=== PATIENT | male | born 1950 | race Caucasian/White ===

== ENCOUNTER 2021-01-02 17:32 | Emergency (ER) | payer OTHER ==
--- OUTSIDE RECORDS SUMMARY | 2021-01-02 17:56 | XMS REPORT | Continuity of Care Document ---
:1950 Author Organization [facility] t Address [address] [place] [address] Care Team Providers Name Role Phone UNKNOWN Primary Care Physician Unavailable Pascual BRIONES, A Attending Clinician Doctor Unassigned, Name Attending Clinician Unavailable MATHEW Attending Clinician Unavailable MATHEW Admitting Clinician Unavailable Problems This patient has no known problems. Allergies, Adverse Reactions, Alerts Allergy Allergy Status Severity Reaction(s) Onset Inactive Treating Comm ents Source Name Type Date Date Clinician No Known DA Active U [facility] Drug 11-16 Allergie 00:00: s 00 Social History Social Habit Start Date Stop Date Quantity Comments Source Sex Assigned At [address] [facility] ethodist 00:00:00 00:00:00 Medications Ordered Filled Start Stop Current Ordering Indication Dosage Frequency Signature Comments Components Source Medication Medication Date Date Medication? Clinician (SIG) Name Name furosemide Yes 20mg Q.5D Take 20 mg [place] (LASIX) 20 7-15 by mouth 2 Met hodi MG tablet 18:34: (two) st 46 times a day. hydrochloro Yes 25mg QD Take 25 mg Reid thiazide 7-15 by mouth Methodi (HYDRODIURI 18:34: daily. st L) 25 MG 45 tablet metFORMIN 2016-0 Yes 500mg Q.5D Take 500 Alyce ston (GLUCOPHAGE 7-15 mg by Methodi ) 500 MG 18:34: mouth 2 st tablet 45 (two) times a day with meals. Vital Signs Vital Name Observation Time Observation Value Comments Source 02 Sat by Pulse Oximetry 2020-11-22 10:05:10 94 /min Body Mass Index 2020-11-22 10:05:10 76.8 Height 2020-11-22 10:05:10 180.34\S\71 Pulse Rate 2020-11-22 10:05:10 58 /min Pulse Strength 2020-11-22 10:05:10 Normal /min Respiratory Rate 2020-11-22 10:05:10 18 /min Weight 2020-11-22 10:05:10 004167\S\8818.49 02 Sat by Pulse Oximetry 2020-11-17 00:08:15 94 /min Body Mass Index 2020-11-17 00:08:15 76.8 Height 2020-11-17 00:08:15 180.34\S\71 Pulse Rate 2020-11-17 00:08:15 58 /min Pulse Strength 2020-11-17 00:08:15 Normal /min Respiratory Rate 2020-11-17 00:08:15 18 /min Weight 2020-11-17 00:08:15 575684\S\8818.49 02 Sat by Pulse Oximetry 2020-11-17 00:08:14 94 /min Body Mass Index 2020-11-17 00:08:14 76.8 Height 2020-11-17 00:08:14 180.34\S\71 Pulse Rate 2020-11-17 00:08:14 58 /min Pulse Strength 2020-11-17 00:08:14 Normal /min Respiratory Rate 2020-11-17 00:08:14 18 /min Weight 2020-11-17 00:08:14 546816\S\8818.49 02 Sat by Pulse Oximetry 2020-11-16 12:22:40 93 /min Body Mass Index 2020-11-16 12:22:40 76.8 Height 2020-11-16 12:22:40 180.34\S\71 Pulse Rate 2020-11-16 12:22:40 58 /min Pulse Strength 2020-11-16 12:22:40 Normal /min Respiratory Rate 2020-11-16 12:22:40 19 /min Weight 2020-11-16 12:22:40 893888\S\8818.49 Body Mass Index 2020-11-16 07:00:48 76.8 Height 2020-11-16 07:00:48 180.34\S\71 Weight 2020-11-16 07:00:48 715356\S\8818.49 WEIGHT 2020-11-16 07:00:00 250 kg HEIGHT 2020-11-16 07:00:00 180.34 cm Procedures This patient has no known procedures. Plan of Care Planned Activity Planned Date Details Comments Source Future Scheduled 2021-03-17 INFLUENZA VACCINE [place] [facility] 00:00:00 [code = INFLUENZA VACCINE] Future Scheduled 2013 65+ PNEUMOCOCCAL [facility] 00:00:00 VACCINE (1 of 1 - PPSV23) [code = 65+ PNEUMOCOCCAL VACCINE (1 of 1 - PPSV23)] Future Scheduled 1998 COLONOSCOPY SCREENING [facility] 00:00:00 [code = COLONOSCOPY SCREENING] Future Scheduled 1998 SHINGLES VACCINES (#1) H shweta [facility] 00:00:00 [code = SHINGLES VACCINES (#1)] Future Scheduled 1960 COVID-19 VACCINE (1) Alycebriseida hickey [facility] 00:00:00 [code = COVID-19 VACCINE (1)] Encounters Start End Encounter Admission Attending Care Care Encounter Source Date/Time Date/Time Type Type Clinicians Facility Department ID 2020-12-19 2020-12-19 [facility] [id number] 00:00:00 00:00:00 Nitin A PRIMARY [id number] CARE [id number] KRISTIN [id number] 2020-12-18 2020-12-18 Orders Doctor SARA [id number] 00:00:00 00:00:00 Only Unassigned, CHAY [id number] [place] [facility] [id number] 2020-12-16 2020-12-[address] [facility] [id number] 00:00:00 00:00:00 Nitin Ruiz PRIMARY [id number] CARE [id number] [facility] [id number] 2020-11-02 2020-11-[address] [facility] [id number] 13:17:26 15:03:06 Visit Nitin Ruiz PRIMARY [id number] CARE [id number] PAVILLION [id number] Results Test Description Test Time Test Comments Results Result Comments Source Pro-Bnp 2017-04-09 22:10:00 Test Item Value Reference Range Interpretation Comme nts NT ProBnp (test code = PBNP) 204 pg/mL 0-124 H Lipid [id number] 22:10:00 Test Item Value Reference Range Interpretation Comments Cholesterol (test 150 mg/dL 0-200 N code = CHOL) Triglycerides (test 150 mg/dL 9-200 N code = TRIG) HDL (test code = 43 mg/dL 40-60 N HDL) Chol/HDL (test code 3.5 Ratio 0.0-5.0 N = CHOLPHDL) LDL, Calculated 77 mg/dL 0-130 N (NOTE)RISK O F HEART (test code = LDLC) DISEASEPu blished by [place] Heart AssociationAnal yte Optim al Boderline Increased RiskC HOL <200 200-239 >240TRI G <150 150-199 >200HDL Male: >60 <40HDL Female: >60 <50 LDL < 100 130-15 9 >160 LDL NEAR OPTIMAL IS 100- 129 VLDL (test code = 30 mg/dL 5-40 N VLDL) LDL/HDL (test code = 2 LDLPHDL)
[2021-01-02 20:51] LABS: Absolute Lymphocytes (CBC) 1.6 K/uL (0.7-4.9); Basophils % 0.6 % (0-1.3); Hematocrit 43.2 % (39.6-49.0); Lymphocytes % 18.4 % (15.3-44.8); MPV 9.3 fL (7.6-11.3); RBC Red Blood Cell Count 4.88 M/uL (4.33-5.43)
[2021-01-02] MEDS ORDERED: NA CHLORIDE 0.9% 1,000 ML ONE (20:52)
[2021-01-02] MEDS ORDERED: BISACODYL 10 MG RECTAL SUPP ONE (20:52)
[2021-01-02] MEDS ORDERED: LACTULOSE 20 GM/30 ML UCUP ONE (20:52)
[2021-01-02] MEDS ORDERED: NA CHLORIDE 0.9% 500 ML ONE (20:52)
[2021-01-02 21:00] LABS: Albumin 3.8 g/dL (3.4-5.0); Bilirubin Direct 0.3 mg/dL (0-0.2); Potassium 4.5 mmol/L (3.5-5.1); Protein, Total 7.4 g/dL (6.4-8.2)
--- NOTE | 2021-01-02 23:26 | EDPHYS ---
Physician Documentation [facility] Name: Tuan Martins Age: 70 yrs Sex: Male : 1950 Arrival Date: 01/02/2021 Time: 17:33 Bed 14 Private MD: ED Physician Lizandro Nolan HPI: 01/02 20:27 This 70 yrs old Male presents to ER via Ambulatory with complaints of elaine Abdominal Cramping, Constipation. Historical: - Allergies: 18:06 No Known Allergies; ll1 - PMHx: 18:06 Diabetes - NIDDM; Hypertension; ll1 - PSHx: 18:06 valve replacement; eye surgery; ll1 - Immunization history:: Flu vaccine is up to date. - Social history:: Smoking status: Patient denies any tobacco usage or history of. ROS: 20:27 Constitutional: Negative for fever, chills, and weight loss, Eyes: Negative for injury, elaine pain, redness, and discharge, ENT: Negative for injury, pain, and discharge, Neck: Negative for injury, pain, and swelling, Cardiovascular: Negative for chest pain, palpitations, and edema, Respiratory: Negative for shortness of breath, cough, wheezing, and pleuritic chest pain, Back: Negative for injury and pain, : Negative for injury, bleeding, discharge, and swelling, MS/Extremity: Negative for injury and deformity, Skin: Negative for injury, rash, and discoloration, Neuro: Negative for headache, weakness, numbness, tingling, and seizure, Psych: Negative for depression, anxiety, suicide ideation, homicidal ideation, and hallucinations, Allergy/Immunology: Negative for hives, rash, and allergies, Endocrine: Negative for neck swelling, polydipsia, polyuria, polyphagia, and marked weight changes. 20:27 Abdomen/GI: Positive for abdominal pain, constipation, abdominal cramps. Exam: 20:28 Constitutional: This is a well developed, well nourished patient who is awake, alert, elaine and in no acute distress. Head/Face: Normocephalic, atraumatic. Eyes: Pupils equal round and reactive to light, extra-ocular motions intact. Lids and lashes normal. Conjunctiva and sclera are non-icteric and not injected. Cornea within normal limits. Periorbital areas with no swelling, redness, or edema. ENT: Nares patent. No nasal discharge, no septal abnormalities noted. Tympanic membranes are normal and external auditory canals are clear. Oropharynx with no redness, swelling, or masses, exudates, or evidence of obstruction, uvula midline. Mucous membranes moist. Neck: Trachea midline, no thyromegaly or masses palpated, and no cervical lymphadenopathy. Supple, full range of motion without nuchal rigidity, or vertebral point tenderness. No Meningismus. Chest/axilla: Normal chest wall appearance and motion. Nontender with no deformity. No lesions are appreciated. Cardiovascular: Regular rate and rhythm with a normal S1 and S2. No gallops, murmurs, or rubs. Normal PMI, no JVD. No pulse deficits. Respiratory: Lungs have equal breath sounds bilaterally, clear to auscultation and percussion. No rales, rhonchi or wheezes noted. No increased work of breathing, no retractions or nasal flaring. Back: No spinal tenderness. No costovertebral tenderness. Full range of motion. Male : Normal genitalia with no discharge or lesions. Skin: Warm, dry with normal turgor. Normal color with no rashes, no lesions, and no evidence of cellulitis. MS/ Extremity: Pulses equal, no cyanosis. Neurovascular intact. Full, normal range of motion. Neuro: Awake and alert, GCS 15, oriented to person, place, time, and situation. Cranial nerves II-XII grossly intact. Motor strength 5/5 in all extremities. Sensory grossly intact. Cerebellar exam normal. Normal gait. Psych: Awake, alert, with orientation to person, place and time. Behavior, mood, and affect are within normal limits. 20:28 Abdomen/GI: Inspection: abdomen appears normal. 20:39 Abdomen/GI: Inspection: distension, that is moderate, Bowel sounds: hyperactive, elaine Palpation: mild abdominal tenderness, in all quadrants, Liver: no appreciated palpable abnormalities, Hernia: not appreciated. Vital Signs: 18:04 BP 160 / 72; Pulse 69; Resp 18; Temp 97.9; Pulse Ox 98% ; Weight 111.13 kg; Height 5 ll1 ft. 11 in. (180.34 cm); Pain 2/10; 20:54 BP 170 / 77; Pulse 84; Resp 16; Pulse Ox 99% on R/A; zb 21:42 BP 138 / 59; Pulse 59; Resp 18; Pulse Ox 98% ; zb 22:22 BP 139 / 59; Pulse 58; Resp 18; Pulse Ox 100% on R/A; zb 23:09 BP 130 / 77; Pulse 58; Resp 16; Pulse Ox 100% on R/A; zb 18:04 Body Mass Index 34.17 (111.13 kg, 180.34 cm) ll1 MDM: 20:04 Patient medically screened. elaine 20:40 Differential diagnosis: bowel obstruction, Cholelithiasis, gastritis, pancreatitis. [facility] Data reviewed: vital signs, nurses notes, lab test result(s), radiologic studies, CT scan. Data interpreted: engine monitor: rate is 69 beats/min, rhythm is regular. Test interpretation: by ED physician or midlevel provider:. Counseling: I had a detailed discussion with the patient and/or guardian regarding: the historical points, exam findings, and any diagnostic results supporting the discharge/admit diagnosis, lab results, radiology results. 01/02 20:23 Order name: Basic Metabolic Panel [facility] 01/02 20:23 Order name: CBC with Diff [facility] 01/02 20:23 Order name: Hepatic Function [facility] 01/02 20:23 Order name: Lipase [facility] 01/02 20:56 Order name: CBC with Automated Diff; Complete Time: 21:44 EDMS 01/02 21:00 Order name: Basic Metabolic Panel; Complete Time: 21:44 EDMS 01/02 20:23 Order name: IV Saline Lock; Complete Time: 20:50 [facility] 01/02 20:23 Order name: CT Abd/Pelvis - PO and IV Contrast [facility] 01/02 21:00 Order name: Liver (Hepatic) Function; Complete Time: 21:44 EDMS 01/02 21:00 Order name: Lipase; Complete Time: 21:44 EDMS 01/02 20:23 Order name: Labs collected and sent; Complete Time: 20:50 [facility] Administered Medications: 20:49 Drug: NS 0.9% 1000 ml Route: IV; Rate: 125 ml/hr; Site: right antecubital; zb 23:56 Follow up: Response: No adverse reaction; IV Status: Completed infusion; IV Intake: zb 250ml 20:49 Drug: Dulcolax (bisacodyl) Suppository 10 mg Route: DE; zb 21:43 Follow up: Response: No adverse reaction; Marked relief of symptoms zb 20:49 Drug: Lactulose 30 grams Volume: 45 ml; Route: PO; zb 21:43 Follow up: Response: No adverse reaction; Marked relief of symptoms zb 20:50 Drug: NS 0.9% 500 ml Route: IV; Rate: bolus; Site: right antecubital; zb 21:56 Follow up: Response: No adverse reaction; IV Status: Completed infusion; IV Intake: zb 500ml Disposition: 01/02/21 23:25 Discharged to Home. Impression: Abdominal tenderness, Constipation. - Condition is Stable. - Discharge Instructions: Abdominal Pain, Adult, Constipation, Adult, Type 2 Diabetes Mellitus, Diagnosis, Adult, Constipation, Adult, Yixr-wk-Bdah, Abdominal Pain, Adult, Pgrp-vv-Hktq, Type 2 Diabetes Mellitus, Self Care, Adult. - Prescriptions for Bentyl 20 mg Oral Tablet - take 1 tablet by ORAL route every 6 hours As needed; 20 tablet. Miralax 17 gram/dose Oral - take 1 packet by ORAL route once daily dilute powder in 8 ounces of water or juice; 14 packet. - Medication Reconciliation Form, Thank You Letter, Antibiotic Education, Prescription Opioid Use form. - Follow up: Private Physician; When: 2 - 3 days; Reason: Recheck today's complaints, Continuance of care, Re-evaluation by your physician. Follow up: Pardeep Alamo; When: 2 - 3 days; Reason: Recheck today's complaints, Continuance of care, Re-evaluation by your physician. - Problem is new. - Symptoms have improved. Signatures: Dispatcher [employer] EDNV Lizandro Nolan MD MD cha Lewis, Lynsay RN RN ll1 Michelle Fuentes RN RN zb Corrections: (The following items were deleted from the chart) 23:56 23:25 01/02/2021 23:25 Discharged to Home. Impression: Abdominal tenderness; zb Constipation. Condition is Stable. Discharge Instructions: Abdominal Pain, Adult, Constipation, Adult, Constipation, Adult, Lgab-ke-Jmvg, Abdominal Pain, Adult, Lbyj-xu-Oboq, Type 2 Diabetes Mellitus, Diagnosis, Adult, Type 2 Diabetes Mellitus, Self Care, Adult. Prescriptions for Bentyl 20 mg Oral Tablet - take 1 tablet by ORAL route every 6 hours As needed; 20 tablet, Lactulose 10 gram/15 mL Oral Solution - take 30 milliliter by ORAL route once daily; 300 milliliter, Dulcolax 10 mg Rectal Suppository - insert 1 suppository by RECTAL route every 12 hours As needed; 10 suppository. and Forms are Medication Reconciliation Form, Thank You Letter, Antibiotic Education, Prescription Opioid Use. Follow up: Private Physician; When: 2 - 3 days; Reason: Recheck today's complaints, Continuance of care, Re-evaluation by your physician. Follow up: Pardeep Alamo; When: 2 - 3 days; Reason: Recheck today's complaints, Continuance of care, Re-evaluation by your physician. Problem is new. Symptoms have improved. elaine
--- NOTE | 2021-01-02 23:26 | ER ---
Nurse's Notes [facility] Name: Tuan Martins Age: 70 yrs Sex: Male : 1950 Arrival Date: 01/02/2021 Time: 17:33 Bed 14 Private MD: Diagnosis: Abdominal tenderness;Constipation Presentation: 01/02 18:04 Chief complaint: Patient states: RLQ abd pain with constipation since last night. No ll1 fever. Coronavirus screen: Client denies travel out of the [place] in the last 14 days. At this time, the client does not indicate any symptoms associated with coronavirus-19. Ebola Screen: Patient denies travel to an Ebola-affected area in the 21 days before illness onset. Initial Sepsis Screen: Does the patient meet any 2 criteria? No. Patient's initial sepsis screen is negative. Does the patient have a suspected source of infection? Yes: Acute abdominal pain. Risk Assessment: Do you want to hurt yourself or someone else? Patient reports no desire to harm self or others. Onset of symptoms was January 01, 2021. 18:04 Method Of Arrival: Ambulatory ll1 18:04 Acuity: CHRIS 3 ll1 Historical: - Allergies: 18:06 No Known Allergies; ll1 - PMHx: 18:06 Diabetes - NIDDM; Hypertension; ll1 - PSHx: 18:06 valve replacement; eye surgery; ll1 - Immunization history:: Flu vaccine is up to date. - Social history:: Smoking status: Patient denies any tobacco usage or history of. Screenin:55 Abuse screen: Denies threats or abuse. Denies injuries from another. Nutritional zb screening: No deficits noted. Tuberculosis screening: No symptoms or risk factors identified. Fall Risk None identified. Assessment: 20:50 General: Appears in no apparent distress. uncomfortable, Behavior is calm, cooperative, zb appropriate for age. Pain: Complains of pain in abdomen Pain does not radiate. Pain currently is 4 out of 10 on a pain scale. Quality of pain is described as aching, pressure, Pain began since Thursday. Neuro: Level of Consciousness is awake, alert, obeys commands, Oriented to person, place, time, situation. Cardiovascular: Heart tones S1 S2 present Capillary refill < 3 seconds Patient's skin is warm and dry. Respiratory: Airway is patent Respiratory effort is even, unlabored, Respiratory pattern is regular, symmetrical. GI: Abdomen is Stools are reported to be constipated. Last BM was December 29, 2020. Bowel sounds present X 4 quads. Abdomen is tender to palpation in suprapubic area. GI: Reports constipation. : No deficits noted. Derm: Skin is intact, is healthy with good turgor, Skin is dry, Skin is normal, Skin temperature is warm. Musculoskeletal: Circulation, motion, and sensation intact. Range of motion: intact in all extremities. 21:38 Reassessment: Patient appears in no apparent distress at this time. Patient and/or zb family updated on plan of care and expected duration. Pain level reassessed. Patient is alert, oriented x 3, equal unlabored respirations, skin warm/dry/pink. patient feeling relieve. Patient stated he had a BM. IV fluid infusing. 22:22 Reassessment: Patient appears in no apparent distress at this time. Patient and/or zb family updated on plan of care and expected duration. Pain level reassessed. Patient is alert, oriented x 3, equal unlabored respirations, skin warm/dry/pink. IV fluid infusing. 23:08 Reassessment: Patient appears in no apparent distress at this time. Patient and/or zb family updated on plan of care and expected duration. Pain level reassessed. Patient is alert, oriented x 3, equal unlabored respirations, skin warm/dry/pink. Patient has had another BM. appears less bloated. states he is ready to go. advised patient that ECP is waiting on CT results which have not coming in yet. IV fluid infusing. Vital Signs: 18:04 BP 160 / 72; Pulse 69; Resp 18; Temp 97.9; Pulse Ox 98% ; Weight 111.13 kg; Height 5 ll1 ft. 11 in. (180.34 cm); Pain 2/10; 20:54 BP 170 / 77; Pulse 84; Resp 16; Pulse Ox 99% on R/A; zb 21:42 BP 138 / 59; Pulse 59; Resp 18; Pulse Ox 98% ; zb 22:22 BP 139 / 59; Pulse 58; Resp 18; Pulse Ox 100% on R/A; zb 23:09 BP 130 / 77; Pulse 58; Resp 16; Pulse Ox 100% on R/A; zb 18:04 Body Mass Index 34.17 (111.13 kg, 180.34 cm) ll1 ED Course: 17:33 Patient arrived in ED. as 18:05 Triage completed. ll1 18:06 Arm band placed on. ll1 20:04 Lizandro Nolan MD is Attending Physician. elaine 20:23 Michelle Fuentes, RN is Primary Nurse. zb 20:55 Patient has correct armband on for positive identification. Bed in low position. Call zb light in reach. Side rails up X 1. Pulse ox on. NIBP on. 20:55 Inserted saline lock: 20 gauge in right antecubital area, using aseptic technique. zb ,using aseptic technique. Performed by MANAGER MAINTENANCE Blood collected. 23:25 Pardeep Alamo MD is Referral Physician. elaine 23:56 No provider procedures requiring assistance completed. IV discontinued, intact, zb bleeding controlled, No redness/swelling at site. Pressure dressing applied. 01/03 01:51 CT Abd/Pelvis - PO and IV Contrast In Process Unspecified. EDMS Administered Medications: 01/02 20:49 Drug: NS 0.9% 1000 ml Route: IV; Rate: 125 ml/hr; Site: right antecubital; zb 23:56 Follow up: Response: No adverse reaction; IV Status: Completed infusion; IV Intake: zb 250ml 20:49 Drug: Dulcolax (bisacodyl) Suppository 10 mg Route: NV; zb 21:43 Follow up: Response: No adverse reaction; Marked relief of symptoms zb 20:49 Drug: Lactulose 30 grams Volume: 45 ml; Route: PO; zb 21:43 Follow up: Response: No adverse reaction; Marked relief of symptoms zb 20:50 Drug: NS 0.9% 500 ml Route: IV; Rate: bolus; Site: right antecubital; zb 21:56 Follow up: Response: No adverse reaction; IV Status: Completed infusion; IV Intake: zb 500ml Intake: 21:56 IV: 500ml; Total: 500ml. zb 23:56 IV: 250ml; Total: 750ml. zb Outcome: 23:25 Discharge ordered by . elaine 23:56 Discharged to home ambulatory. zb 23:56 Condition: stable 23:56 Discharge instructions given to patient, Instructed on discharge instructions, follow up and referral plans. medication usage, Demonstrated understanding of instructions, follow-up care, medications, Prescriptions given X 2. 23:56 Patient left the ED. zb Signatures: Dispatcher [employer] EDLizandro Zuniga MD MD cha Martinez, Amelia as Lewis, Lynsay, RN RN ll1 Michelle Fuentes RN RN zb Corrections: (The following items were deleted from the chart) 23:09 21:38 Reassessment: Patient appears in no apparent distress at this time. Patient zb and/or family updated on plan of care and expected duration. Pain level reassessed. Patient is alert, oriented x 3, equal unlabored respirations, skin warm/dry/pink. patient feeling relieve. Patient stated he had a BM zb
[2021-01-03 00:36] VITALS: TEMP 97.9
[2021-01-03 00:41] VITALS: O2SAT 100
[2021-01-03 00:42] VITALS: BP 130/77
--- NOTE | 2021-01-03 10:48 | RAD REPORT ---
EXAM DESCRIPTION: CT - Abdomen Pelvis W Contrast - 01/03/2021 6:50 am CLINICAL HISTORY: Abd pain;Constipation. COMPARISON: None. TECHNIQUE: CT of the abdomen and pelvis was performed following intravenous administration of iodina francis contrast. Arterial phase images through the abdomen, and portal venous phase images through the a bdomen and pelvis were obtained. Axial, coronal, and sagittal soft tissue window reconstructions were created and sent to PACS. This exam was performed according to our departmental dose-optimization program, which includes autom ated exposure control, adjustment of the mA and/or kV according to patient size and/or use of iterati ve reconstruction technique. FINDINGS: Thoracic: Mild patchy interstitial thickening in the lung bases. Hepatobiliary: No concerning hepatic lesion identified. The hepatic and portal veins are patent. The gallbladder is unremarkable. No biliary ductal dilatation. Pancreas: Unremarkable. Spleen: Unremarkable. Gastrointestinal: No evidence of bowel obstruction or perienteric inflammation. The appendix is scott l. High density material in the colon, possibly oral contrast. Redundant sigmoid colon. No obvious wa ll thickening or diverticula. Small amount of fecal material throughout the colon. Adrenals: No abnormality identified in either adrenal gland. Renal: Mild bilateral perinephric fat stranding. No concerning parenchymal abnormality in either kidn ey. No hydronephrosis or urolithiasis. Bladder/Reproductive: Unremarkable appearance of the urinary bladder by CT technique. Vascular/Lymphatics: No lymphadenopathy identified by CT size criteria. Abdominal aorta is normal in caliber. The major visceral vessels are patent. Mild calcific atherosclerosis. Musculoskeletal: No concerning osseous lesion identified. 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 Fluid / peritoneum: No significant free fluid. No free intraperitoneal air identified. IMPRESSION: 1. No acute abdominal or pelvic pathology identified. 2. Small amount of fecal material throughout the colon. Electronically signed by: Anna Chen MD 01/02/2021 10:51 PM CDT Due to temporary technical issues with the PACS/Fluency reporting system, reports are being signed by the in house radiologist without review as a courtesy to ensure prompt reporting. The interpreting r adiologist is fully responsible for the content of the report.
== END 2021-01-02 23:56 | disposition home or self-care (01) ==
LOC: ER 17:32
DX: K59.00 Constipation, unspecified (principal); I10 Essential (primary) hypertension; E11.9 Type 2 diabetes mellitus without complications
CPT/HCPCS: 85025; 80048; 36415; 80076; 83690; 74177; Q9967; J7040; J7030; 96360; 96361; 99284

== ENCOUNTER 2021-01-08 15:46 | Emergency (ER) | payer OTHER ==
--- OUTSIDE RECORDS SUMMARY | 2021-01-08 15:49 | XMS REPORT | Continuity of Care Document ---
:1950 Author Organization [facility] t Address [address] [place] [address] Care Team Providers Name Role Phone UNKNOWN Primary Care Physician Unavailable Pascual BRIONES, A Attending Clinician Doctor Unassigned, Name Attending Clinician Unavailable Roxi BRIONES Attending Clinician 3 Attending Clinician Unavailable Field-Hrt Attending Clinician Unavailable MATHEW Attending Clinician Unavailable MATHEW Admitting Clinician Unavailable Problems This patient has no known problems. Allergies, Adverse Reactions, Alerts Allergy Allergy Status Severity Reaction(s) Onset Inactive Treating Comm ents Source Name Type Date Date Clinician No Known DA Active U [facility] Drug 11-16 Allergie 00:00: s 00 Social History Social Habit Start Date Stop Date Quantity Comments Source Sex Assigned At [birth year] [facility] ethodist 00:00:00 00:00:00 Medications Ordered Filled Start Stop Current Ordering Indication Dosage Frequency Signature Comments Components Source Medication Medication Date Date Medication? Clinician (SIG) Name Name furosemide Yes 20mg Q.5D Take 20 mg [place] (LASIX) 20 7-15 by mouth 2 Met h[place] MG tablet 18:34: (two) st 46 times a day. hydrochloro 2016-0 Yes 25mg QD Take 25 mg Reid [...] 2020-11-22 10:05:10 18 /min Weight 2020-11-22 10:05:10 229151\S\8818.49 02 Sat by Pulse Oximetry 2020-11-17 00:08:15 94 /min Body Mass Index 2020-11-17 00:08:15 76.8 Height 2020-11-17 00:08:15 180.34\S\71 Pulse Rate 2020-11-17 00:08:15 58 /min Pulse Strength 2020-11-17 00:08:15 Normal /min Respiratory Rate 2020-11-17 00:08:15 18 /min Weight 2020-11-17 00:08:15 690242\S\8818.49 02 Sat by Pulse Oximetry 2020-11-17 00:08:14 94 /min Body Mass Index 2020-11-17 00:08:14 76.8 Height 2020-11-17 00:08:14 180.34\S\71 Pulse Rate 2020-11-17 00:08:14 58 /min Pulse Strength 2020-11-17 00:08:14 Normal /min Respiratory Rate 2020-11-17 00:08:14 18 /min Weight 2020-11-17 00:08:14 591004\S\8818.49 02 Sat by Pulse Oximetry 2020-11-16 12:22:40 93 /min Body Mass Index 2020-11-16 12:22:40 76.8 Height 2020-11-16 12:22:40 180.34\S\71 Pulse Rate 2020-11-16 12:22:40 58 /min Pulse Strength 2020-11-16 12:22:40 Normal /min Respiratory Rate 2020-11-16 12:22:40 19 /min Weight 2020-11-16 12:22:40 832024\S\8818.49 Body Mass Index 2020-11-16 07:00:48 76.8 Height 2020-11-16 07:00:48 180.34\S\71 Weight 2020-11-16 07:00:48 808810\S\8818.49 WEIGHT 2020-11-16 07:00:00 250 kg HEIGHT 2020-11-16 07:00:00 180.34 cm Procedures This patient has no known procedures. Plan of Care Planned Activity Planned Date Details Comments Source Future Scheduled 2021-03-17 INFLUENZA VACCINE [place] [facility] 00:00:00 [code = INFLUENZA VACCINE] Future Scheduled 2013 65+ PNEUMOCOCCAL [facility] Test 00:00:00 VACCINE (1 of 1 - PPSV23) [code = 65+ PNEUMOCOCCAL VACCINE (1 of 1 - PPSV23)] Future Scheduled 1998 COLONOSCOPY SCREENING [facility] Test 00:00:00 [code = COLONOSCOPY SCREENING] Future Scheduled 1998 SHINGLES VACCINES (#1) H shweta [facility] Test 00:00:00 [code = SHINGLES VACCINES (#1)] Future Scheduled 1960 COVID-19 VACCINE (1) Alyce hickey [facility] Test 00:00:00 [code = COVID-19 VACCINE (1)] Encounters Start End Encounter Admission Attending Care Care Encounter Source Date/Time Date/Time Type Type Clinicians Facility Department ID 2021-01-04 2021-01-04 Refill DARRION Garner [id number] 00:00:00 00:00:00 Nitin Ruiz PRIMARY [id number] CARE [id number] KRISTIN [id number] 2020-12-19 2020-12-19 Telephone DARRION Garner [id number] 00:00:00 00:00:00 Nitin Ruiz PRIMARY [id number] CARE [id number] PAVILLION [id number] 2020-12-18 2020-12-18 Orders Doctor SARA [id number] 00:00:00 00:00:00 Only Unassigned, CHAY 350.1.13.10 [facility] [id number] 2020-12-16 2020-12-16 Refill [facility] [id number] 00:00:00 00:00:00 Nitin Ruiz PRIMARY [id number] CARE [id number] PAVILLION [id number] 2020-11-02 2020-11-02 Office [facility] [id number] 13:17:26 15:03:06 Visit Nitin Ruiz PRIMARY [id number] CARE [id number] PAVILLION [id number] 2020-02-15 2020-02-15 Office Pacheco Diane BCMikel 1.2.840.114 [id number] 13:34:22 14:29:22 Visit 3, Ods AMBULATOR 350.1.13.21 3, Ods Y 0.2.7.2.686 Field-Hrt, Visual [id number] 300 Results Test Description Test Time Test Comments Results Result Comments Source Pro-Bnp 2017-04-09 22:10:00 Test Item Value Reference Range Interpretation Comme nts NT ProBnp (test code = PBNP) 204 pg/mL 0-124 H Lipid [id number] 22:10:00 Test Item Value Reference Range Interpretation Comments Cholesterol (test 150 mg/dL 0-200 N code = CHOL) Triglycerides (test 150 mg/dL 9-200 N code = TRIG) HDL (test code = 43 mg/dL 40-60 N HDL) Chol/HDL (test code 3.5 Ratio 0.0-5.0 N = CHOLPHDL) LDL, Calculated 77 mg/dL 0-130 N (NOTE)RISK O F HEART (test code = LDLC) DISEASEPu blished by [place] Heart AssociationAnal yte Optim al Boderline Increased RiskC HOL <200 200-239 >240TRI G <150 150-199 >200HDL Male: >60 <40HDL Female: >60 <50 LDL < 100 130-15 9 >160 LDL NEAR OPTIMAL IS 100- 129 VLDL (test code = 30 mg/dL 5-40 N VLDL) LDL/HDL (test code = 2 LDLPHDL)
[2021-01-08 17:13] LABS: Absolute Lymphocytes (CBC) 1.3 K/uL (0.7-4.9); Basophils % 0.7 % (0-1.3); Hematocrit 43.3 % (39.6-49.0); MPV 8.9 fL (7.6-11.3); RBC Red Blood Cell Count 4.85 M/uL (4.33-5.43)
[2021-01-08 17:30] LABS: Bilirubin Direct 0.3 mg/dL (0-0.2); Bilirubin Total 0.9 mg/dL (0.2-1.0); Potassium 3.8 mmol/L (3.5-5.1); Protein, Total 7.4 g/dL (6.4-8.2)
[2021-01-08] MEDS ORDERED: NA CHLORIDE 0.9% 250 ML ONE (17:30)
--- NOTE | 2021-01-08 18:05 | RAD REPORT ---
EXAM DESCRIPTION: CT - Abdomen Pelvis W Contrast - 01/08/2021 5:45 pm CLINICAL HISTORY: CONSTIPATION COMPARISON: Abdomen Pelvis W Contrast dated 01/02/2021 TECHNIQUE: Biphasic, helical CT imaging of the abdomen and pelvis was performed following 100 ml non -ionic IV contrast. No oral contrast administered. All CT scans are performed using dose optimization technique as appropriate and may include automated exposure control or mA/KV adjustment according to patient size. FINDINGS: No suspicious findings in the lung bases. Liver shows mild diffuse fatty infiltration no focal lesion. No portal vein abnormality. Pancreas and spleen show no suspicious findings. Gallbladder and biliary tree are also without suspicious finding . Gallstones can be occult on CT imaging. Symmetric renal function is seen with no hydronephrosis or suspicious renal mass. No pyelonephritis o r acute parenchymal process. Urinary bladder is mostly contracted precluding accurate assessment. No bladder calculus seen. Prostate gland seminal vesicles not outside of normal range. No adrenal abnorm alities. No gastric dilatation or wall thickening. No dilated large or small bowel loop. No suspicion for appe ndicitis. Sigmoid is redundant. No abnormal stool volume in the colon. No free air, free fluid or pn eumatosis. No abnormal inflammatory stranding. No mass or bulky lymphadenopathy. Minimal fat extends into each inguinal canal. No suspicious bony findings. Prominent degenerative change present at the lumbosacral junction with p ars defects present. IMPRESSION: Contrast enhanced CT abdomen and pelvis showing no acute or emergent finding. Nonacute findings detailed in the body of the report. No significant change from the January 02 study.
--- NOTE | 2021-01-08 18:29 | ER ---
Nurse's Notes [facility] Name: Tuan Martins Age: 70 yrs Sex: Male : 1950 Arrival Date: 01/08/2021 Time: 16:05 Bed 24 Private MD: Diagnosis: Constipation Presentation: 01/08 16:18 Chief complaint: Patient states: Constipation and abdominal cramping since Thursday ca1 last week. Supposed to see Dr. Alamo tomorrow. Denies N/V. Coronavirus screen: Client denies travel out of the [place] in the last 14 days. At this time, the client does not indicate any symptoms associated with coronavirus-19. Ebola Screen: Patient negative for fever greater than or equal to 101.5 degrees Fahrenheit, and additional compatible Ebola Virus Disease symptoms Patient denies exposure to infectious person. Patient denies travel to an Ebola-affected area in the 21 days before illness onset. No symptoms or risks identified at this time. Initial Sepsis Screen: Does the patient meet any 2 criteria? No. Patient's initial sepsis screen is negative. Does the patient have a suspected source of infection? No. Patient's initial sepsis screen is negative. Risk Assessment: Do you want to hurt yourself or someone else? Patient reports no desire to harm self or others. Onset of symptoms was January 08, 2021. 16:18 Method Of Arrival: Ambulatory ca1 16:18 Acuity: CHRIS 3 ca1 Historical: - Allergies: 16:20 No Known Allergies; ca1 - PMHx: 16:20 Diabetes - NIDDM; Hypertension; ca1 - PSHx: 16:20 valve replacement; eye surgery; ca1 - Immunization history:: Client reports receiving the 2nd dose of the Covid vaccine, Client reports receiving the 1st dose of the Covid vaccine, Pneumococcal vaccine is up to date, Flu vaccine is up to date. - Social history:: Smoking status: Patient denies any tobacco usage or history of. Screenin:30 Abuse screen: Denies threats or abuse. Denies injuries from another. Nutritional zb screening: No deficits noted. Tuberculosis screening: No symptoms or risk factors identified. Fall Risk None identified. Assessment: 17:30 General: Appears in no apparent distress. uncomfortable, Behavior is calm, cooperative, zb anxious. Pain: Denies pain. Neuro: Level of Consciousness is awake, alert, obeys commands, Oriented to person, place, time, situation. Cardiovascular: Patient's skin is warm and dry. Respiratory: Airway is patent Respiratory effort is even, unlabored, Respiratory pattern is regular, symmetrical. GI: Abdomen is distended, Last BM was January 05, 2021. Bowel sounds present X 4 quads. Abd is soft and non tender X 4 quads. GI: Reports bloating, constipation. GI: Patient currently denies nausea, vomiting. : Urine is clear. Derm: Skin is normal. Musculoskeletal: Circulation, motion, and sensation intact. Range of motion: intact in all extremities. 18:24 Reassessment: Patient appears in no apparent distress at this time. Patient and/or zb family updated on plan of care and expected duration. Pain level reassessed. Patient is alert, oriented x 3, equal unlabored respirations, skin warm/dry/pink. ECP at bedside discussing care. 18:44 Reassessment: d/c instructions given. gait even and steady. patient ambulated out. zb Vital Signs: 16:18 BP 158 / 78; Pulse 62; Resp 18 S; Temp 98.3(TE); Pulse Ox 100% on R/A; Weight 111.13 kg ca1 (R); Height 5 ft. 11 in. (180.34 cm) (R); Pain 5/10; 18:45 BP 163 / 85; Pulse 56; Resp 16; Pulse Ox 97% on R/A; zb 16:18 Body Mass Index 34.17 (111.13 kg, 180.34 cm) ca1 ED Course: 16:05 Patient arrived in ED. rg4 16:20 Triage completed. ca1 16:20 Arm band placed on right wrist. ca1 16:21 Lizandro Broderick PA is PHCP. cp 16:21 Kristofer Fish MD is Attending Physician. cp 17:00 Inserted saline lock: 20 gauge in left antecubital area, using aseptic technique. Blood ll1 collected. 17:07 Michelle Fuentes, TYLER is Primary Nurse. zb 17:30 Patient has correct armband on for positive identification. Pulse ox on. NIBP on. Door zb closed. Noise minimized. 17:46 CT Abd/Pelvis - IV Contrast Only In Process Unspecified. EDMS 18:27 Pardeep Alamo MD is Referral Physician. cp 18:45 No provider procedures requiring assistance completed. IV discontinued, intact, zb bleeding controlled, No redness/swelling at site. Pressure dressing applied. Administered Medications: 17:29 Drug: NS 0.9% 250 ml Route: IV; Rate: bolus; Site: right antecubital; zb 18:00 Follow up: Response: No adverse reaction; IV Status: Completed infusion; IV Intake: zb 250ml 18:44 Drug: Magnesium Citrate Liquid 300 ml Route: PO; zb 18:44 Follow up: Response: Medication administered at discharge. zb Intake: 18:00 IV: 250ml; Total: 250ml. zb Outcome: 18:29 Discharge ordered by MD. cp 18:45 Discharged to home ambulatory. zb 18:45 Condition: stable 18:45 Discharge instructions given to patient, Instructed on discharge instructions, follow up and referral plans. Demonstrated understanding of instructions, follow-up care. 18:46 Patient left the ED. zb Signatures: Dispatcher [employer] EDMS Lizandro Broderick PA PA cp Garcia, Rubi rg4 Anny Kwong RN RN ca1 Deo Kim RN RN ll1 Michelle Fuentes RN RN zb
--- NOTE | 2021-01-08 18:29 | EDPHYS ---
Physician Documentation [facility] Name: Tuan Martins Age: 70 yrs Sex: Male : 1950 Arrival Date: 01/08/2021 Time: 16:05 Bed 24 Private MD: ED Physician Kristofer Fish HPI: 01/08 16:42 This 70 yrs old Male presents to ER via Ambulatory with complaints of cp Abdominal Cramping, Constipation. 16:42 The patient presents with abdominal pain in the lower abdomen, cramping. cp 16:42 The symptoms do not radiate. Associated signs and symptoms: Pertinent positives: cp constipation, Pertinent negatives: nausea and vomiting, anorexia, blood in stools, diarrhea, dysuria, fever, testicular pain. Severity of pain: in the emergency department the pain is unchanged despite home interventions. 16:42 Onset: The symptoms/episode began/occurred last week. cp 16:42 Patient reports appt tomorrow with CAMILO, DR Alamo. cp Historical: - Allergies: 16:20 No Known Allergies; ca1 - PMHx: 16:20 Diabetes - NIDDM; Hypertension; ca1 - PSHx: 16:20 valve replacement; eye surgery; ca1 - Immunization history:: Client reports receiving the 2nd dose of the Covid vaccine, Client reports receiving the 1st dose of the Covid vaccine, Pneumococcal vaccine is up to date, Flu vaccine is up to date. - Social history:: Smoking status: Patient denies any tobacco usage or history of. ROS: 16:50 Constitutional: Negative for body aches, chills, fever, poor PO intake. cp 16:50 Eyes: Negative for injury, pain, redness, and discharge. cp 16:50 ENT: Negative for ear pain, sore throat, difficulty swallowing, difficulty handling secretions. 16:50 Cardiovascular: Negative for chest pain, palpitations. 16:50 Respiratory: Negative for cough, shortness of breath, wheezing. 16:50 Abdomen/GI: Positive for constipation, abdominal cramps, Negative for nausea, vomiting, black/tarry stool, rectal bleeding. 16:50 Back: Negative for radiated pain. 16:50 Neuro: Negative for altered mental status, weakness. 16:50 All other systems are negative. Exam: 16:53 Head/Face: Normocephalic, atraumatic. cp 16:53 Constitutional: The patient appears in no acute distress, alert, awake, non-toxic, well developed, well nourished, obese. 16:53 Eyes: Periorbital structures: appear normal, Conjunctiva: normal, no exudate, no cp injection, Sclera: no appreciated abnormality, Lids and lashes: appear normal, bilaterally. 16:53 ENT: External ear(s): are unremarkable, Nose: is normal, Posterior pharynx: Airway: no evidence of obstruction, patent. 16:53 Chest/axilla: Inspection: normal, Palpation: is normal, no crepitus, no tenderness. cp 16:53 Cardiovascular: Rate: normal, Rhythm: regular, Edema: ankle edema, that is very mild, JVD: is not appreciated. 16:53 Respiratory: the patient does not display signs of respiratory distress, Respirations: normal, no use of accessory muscles, no retractions, labored breathing, is not present, Breath sounds: are clear throughout, no decreased breath sounds, no stridor, no wheezing. 16:53 Abdomen/GI: Inspection: obese Bowel sounds: active, all quadrants, Palpation: abdomen is soft and non-tender, in all quadrants, rebound tenderness, is not appreciated, voluntary guarding, is not appreciated, involuntary guarding, is not appreciated. Vital Signs: 16:18 BP 158 / 78; Pulse 62; Resp 18 S; Temp 98.3(TE); Pulse Ox 100% on R/A; Weight 111.13 kg ca1 (R); Height 5 ft. 11 in. (180.34 cm) (R); Pain 5/10; 18:45 BP 163 / 85; Pulse 56; Resp 16; Pulse Ox 97% on R/A; zb 16:18 Body Mass Index 34.17 (111.13 kg, 180.34 cm) ca1 MDM: 16:32 Patient medically screened. cp 18:26 Data reviewed: vital signs, nurses notes, lab test result(s), radiologic studies, CT cp scan. Counseling: I had a detailed discussion with the patient and/or guardian regarding: the historical points, exam findings, and any diagnostic results supporting the discharge/admit diagnosis, lab results, radiology results. Response to treatment: the patient's symptoms have mildly improved after treatment, VSS. Patient reports urge to have bowel movement. Will discharge to home for continued monitoring. 01/08 16:42 Order name: Basic Metabolic Panel; Complete Time: 17:57 cp 01/08 18:19 Interpretation: Normal except: GFR 79. 01/08 16:42 Order name: CBC with Diff; Complete Time: 17:20 cp 01/08 17:20 Interpretation: Reviewed. 01/08 16:42 Order name: Hepatic Function; Complete Time: 17:57 cp 01/08 18:19 Interpretation: Normal except: BILID 0.3. 01/08 16:42 Order name: Lipase; Complete Time: 17:57 cp 01/08 16:42 Order name: Urine Microscopic Only cp 01/08 16:42 Order name: Magnesium; Complete Time: 17:57 cp 01/08 16:42 Order name: IV Saline Lock; Complete Time: 17:07 cp 01/08 16:42 Order name: Labs collected and sent; Complete Time: 17:07 01/08 16:42 Order name: CT Abd/Pelvis - IV Contrast Only; Complete Time: 18:18 01/08 18:35 Order name: Urine Dipstick-Ancillary EDMS Administered Medications: 17:29 Drug: NS 0.9% 250 ml Route: IV; Rate: bolus; Site: right antecubital; zb 18:00 Follow up: Response: No adverse reaction; IV Status: Completed infusion; IV Intake: zb 250ml 18:44 Drug: Magnesium Citrate Liquid 300 ml Route: PO; zb 18:44 Follow up: Response: Medication administered at discharge. zb Disposition: 01/08/21 18:29 Discharged to Home. Impression: Constipation. - Condition is Stable. - Discharge Instructions: Constipation, Adult. - Medication Reconciliation Form, Thank You Letter, Antibiotic Education, Prescription Opioid Use form. - Follow up: Pardeep Alamo MD; When: Tomorrow; Reason: Recheck today's complaints, as scheduled. - Problem is new. - Symptoms are unchanged. Addendum: 01/14/2021 07:56 Co-signature as Attending Physician, Kristofer Fish MD. r n Signatures: Dispatcher [employer] EDMS Kristofer Fish MD MD rn Page, Corey, PA PA cp Acob, Cheryl, RN RN ca1 Brown, Zipporah, RN RN zb Corrections: (The following items were deleted from the chart) 01/08 17:39 16:45 Constitutional: The patient appears in no acute distress, alert, awake, cp non-toxic, well developed, well nourished, obese, cp 17:39 16:45 Head/Face: Normocephalic, atraumatic. cp cp 18:46 18:29 01/08/2021 18:29 Discharged to Home. Impression: Constipation. Condition is zb Stable. Forms are Medication Reconciliation Form, Thank You Letter, Antibiotic Education, Prescription Opioid Use. Follow up: Pardeep Alamo; When: Tomorrow; Reason: Recheck today's complaints, as scheduled. Problem is new. Symptoms are unchanged. cp
[2021-01-08 18:35] LABS: Urine Blood Negative (Negative); Urine Glucose Negative (Negative); Urine Protein 2+ (Negative); Urine pH 8.5 (5.0-7.0)
[2021-01-08] MEDS ORDERED: MAGNESIUM CITRATE 300 ML BOT ONE (18:58)
[2021-01-08 19:02] VITALS: TEMP 98.3
[2021-01-08 19:04] VITALS: BP 163/85; O2SAT 97
[2021-01-08 19:26] LABS: Urine Bacteria NONE SEEN /HPF (NONE SEEN); Urine RBC <5 /HPF (NONE SEEN)
== END 2021-01-08 18:46 | disposition home or self-care (01) ==
LOC: ER 15:46
DX: K59.00 Constipation, unspecified (principal); I10 Essential (primary) hypertension; E11.9 Type 2 diabetes mellitus without complications
CPT/HCPCS: 85025; 80048; 36415; 83735; 80076; 83690; 74177; Q9967; J7050; 81003; 81015; 96365; 99284

== ENCOUNTER 2021-01-16 09:49 | Emergency (ER) | payer OTHER ==
--- OUTSIDE RECORDS SUMMARY | 2021-01-16 09:52 | XMS REPORT | Continuity of Care Document ---
:1950 Author Organization [facility] t Address [address] [place] [address] Care Team Providers Name Role Phone UNKNOWN Primary Care Physician Unavailable Pascual BRIONES, A Attending Clinician Doctor Unassigned, Name Attending Clinician Unavailable Roxi BRIONES Attending Clinician 3 Attending Clinician Unavailable [facility] Attending Clinician Unavailable MATHEW Attending Clinician Unavailable MATHEW Admitting Clinician Unavailable Problems This patient has no known problems. Allergies, Adverse Reactions, Alerts Allergy Allergy Status Severity Reaction(s) Onset Inactive Treating Comm ents Source Name Type Date Date Clinician No Known DA Active U [facility] Drug 11-16 Allergie 00:00: s 00 Social History Social Habit Start Date Stop Date Quantity Comments Source Sex Assigned At [birth year] [facility] ethodist 00:00:00 00:00:00 Medications Ordered Filled Start [...] Name Observation Time Observation Value Comments Source Height 2020-11-22 10:05:10 180.34\S\71 Pulse Rate 2020-11-22 10:05:10 58 /min Pulse Strength 2020-11-22 10:05:10 Normal /min Respiratory Rate 2020-11-22 10:05:10 18 /min Weight 2020-11-22 10:05:10 431497\S\8818.49 02 Sat by Pulse Oximetry 2020-11-22 10:05:10 94 /min Body Mass Index 2020-11-22 10:05:10 76.8 02 Sat by Pulse Oximetry 2020-11-17 00:08:15 94 /min Body Mass Index 2020-11-17 00:08:15 76.8 Height 2020-11-17 00:08:15 180.34\S\71 Pulse Rate 2020-11-17 00:08:15 58 /min Pulse Strength 2020-11-17 00:08:15 Normal /min Respiratory Rate 2020-11-17 00:08:15 18 /min Weight 2020-11-17 00:08:15 789324\S\8818.49 02 Sat by Pulse Oximetry 2020-11-17 00:08:14 94 /min Body Mass Index 2020-11-17 00:08:14 76.8 Height 2020-11-17 00:08:14 180.34\S\71 Pulse Rate 2020-11-17 00:08:14 58 /min Pulse Strength 2020-11-17 00:08:14 Normal /min Respiratory Rate 2020-11-17 00:08:14 18 /min Weight 2020-11-17 00:08:14 458907\S\8818.49 02 Sat by Pulse Oximetry 2020-11-16 12:22:40 93 /min Body Mass Index 2020-11-16 12:22:40 76.8 Height 2020-11-16 12:22:40 180.34\S\71 Pulse Rate 2020-11-16 12:22:40 58 /min Pulse Strength 2020-11-16 12:22:40 Normal /min Respiratory Rate 2020-11-16 12:22:40 19 /min Weight 2020-11-16 12:22:40 630630\S\8818.49 Body Mass Index 2020-11-16 07:00:48 76.8 Height 2020-11-16 07:00:48 180.34\S\71 Weight 2020-11-16 07:00:48 174558\S\8818.49 WEIGHT 2020-11-16 07:00:00 250 kg HEIGHT 2020-11-16 07:00:00 180.34 cm Procedures This patient has no known procedures. Plan of Care Planned Activity Planned Date Details Comments Source Future Scheduled 2021-03-17 INFLUENZA VACCINE [place] [facility] 00:00:00 [code = INFLUENZA VACCINE] Future Scheduled 2013 65+ PNEUMOCOCCAL [facility] Test 00:00:00 VACCINE (1 of 1 - PPSV23) [code = 65+ PNEUMOCOCCAL VACCINE (1 of 1 - PPSV23)] Future Scheduled 1998 COLONOSCOPY SCREENING [facility] Test 00:00:00 [code = COLONOSCOPY SCREENING] Future Scheduled 1998 SHINGLES VACCINES (#1) H [facility] Test 00:00:00 [code = SHINGLES VACCINES (#1)] Future Scheduled 1960 COVID-19 VACCINE (1) Alyce hickey [facility] Test 00:00:00 [code = COVID-19 VACCINE (1)] Encounters Start End Encounter Admission Attending Care Care Encounter Source Date/Time Date/Time Type Type Clinicians Facility Department ID 2021-01-04 2021-01-04 Refill DARRION Garner 1.2.840.114 [id number] 00:00:00 00:00:00 Nitin Ruiz PRIMARY [id number] CARE [id number] KRISTIN [id number] 2020-12-19 2020-12-19 Telephone DARRION Garner [id number] 00:00:00 00:00:00 Nitin Ruiz PRIMARY [id number] CARE [id number] PAVILLION [id number] 2020-12-18 2020-12-18 Orders Doctor SARA 1.2.840.114 [id number] 00:00:00 00:00:00 Only Unassigned, CHAY 350.1.13.10 [facility] [id number] 2020-12-16 2020-12-16 Refill [facility] [id number] 00:00:00 00:00:00 Nitin Ruiz PRIMARY 350.1.13.10 CARE [id number] PAVILLION [id number] 2020-11-02 2020-11-02 Office [facility] [id number] 13:17:26 15:03:06 Visit Nitin Ruiz PRIMARY [id number] CARE [id number] PAVILLION [id number] 2020-02-15 2020-02-15 Office Pacheco Diane BCMikel 1.2.840.114 [id number] 13:34:22 14:29:22 Visit 3, Ods AMBULATOR 350.1.13.21 3, Ods Y 0.2.7.2.686 Field-Hrt, Visual [id number] Results Test Description Test Time Test Comments Results Result Comments Source Pro-Bnp 2017-04-09 22:10:00 Test Item Value Reference Range Interpretation Comme nts NT ProBnp (test code = PBNP) 204 pg/mL 0-124 H Lipid [id number] 22:10:00 Test Item Value Reference Range Interpretation Comments Cholesterol (test 150 mg/dL 0-200 N code = CHOL) Triglycerides (test 150 mg/dL 9-200 N code = TRIG) HDL (test code = 43 mg/dL 40-60 N HDL) Chol/HDL (test code 3.5 Ratio 0.0-5.0 N = CHOLPHDL) LDL, Calculated 77 mg/dL 0-130 N (NOTE)RISK O F HEART (test code = LDLC) DISEASEPu blished by [place] Heart AssociationAnal yte Optim al Boderline Increased RiskC HOL <200 200-239 >240TRI G <150 150-199 >200HDL Male: >60 <40HDL Female: >60 <50 LDL < 100 130-15 9 >160 LDL NEAR OPTIMAL IS 100- 129 VLDL (test code = 30 mg/dL 5-40 N VLDL) LDL/HDL (test code = 2 LDLPHDL)
[2021-01-16 10:42] LABS: Absolute Lymphocytes (CBC) 0.8 K/uL (0.7-4.9); Basophils % 0.5 % (0-1.3); Lymphocytes % 12.3 % (15.3-44.8); MPV 9.1 fL (7.6-11.3); RBC Red Blood Cell Count 4.37 M/uL (4.33-5.43)
[2021-01-16 10:54] LABS: Albumin 3.4 g/dL (3.4-5.0); Bilirubin Direct 0.2 mg/dL (0-0.2); Bilirubin Total 0.7 mg/dL (0.2-1.0); Potassium 3.9 mmol/L (3.5-5.1); Protein, Total 6.5 g/dL (6.4-8.2)
--- NOTE | 2021-01-16 11:30 | RAD REPORT ---
EXAM DESCRIPTION: CTAbdomen Pelvis W Contrast - 01/16/2021 11:17 am CLINICAL HISTORY: Abdominal pain. constipation/diarrhea COMPARISON: Abdomen Pelvis W Contrast dated 01/08/2021; Abdomen Pelvis W Contrast dated 01/02/2021 TECHNIQUE: Biphasic CT imaging of the abdomen and pelvis was performed with 100 ml non-ionic IV cont rast. All CT scans are performed using dose optimization technique as appropriate and may include automated exposure control or mA/KV adjustment according to patient size. FINDINGS: Subtle tree-in-bud opacities in both lung bases present. The liver, spleen, pancreas, adrenal glands and kidneys are within normal limits. No bowel obstruction, free air, free fluid or abscess. Small fat containing umbilical hernia. The emilee endix is normal. No evidence of significant lymphadenopathy. Small bilateral fat containing inguinal hernias. Chronic bilateral spondylolysis L5-S1 with moderate lumbar degenerative changes. IMPRESSION: No acute intra-abdominal or pelvic finding. Small umbilical and bilateral inguinal hernias. Chronic spondylosis and spondylolysis lower lumbar spine.
[2021-01-16] MEDS ORDERED: NA CHLORIDE 0.9% 1,000 ML ONE (12:06)
--- NOTE | 2021-01-16 12:31 | EDPHYS ---
Physician Documentation [facility] Name: Tuan Martins Age: 70 yrs Sex: Male : 1950 Arrival Date: 01/16/2021 Time: 10:03 Bed 5 Private MD: ED Physician Demarcus Costa HPI: 01/16 13:51 This 70 yrs old Male presents to ER via Wheelchair with complaints of kb Diarrhea, Dizziness. 13:51 The patient presents to the emergency department with diarrhea. Onset: The kb symptoms/episode began/occurred yesterday. Possible causes: laxatives. The symptoms are aggravated by nothing. The symptoms are alleviated by nothing. Associated signs and symptoms: Pertinent positives: diarrhea, Pertinent negatives: abdominal pain. Severity of symptoms: At their worst the symptoms were mild moderate in the emergency department the symptoms have improved. The patient has not experienced similar symptoms in the past. The patient has been recently seen by a physician:. Pt reports he has been seeing Dr Alamo for a long time for stomach issues including constipation. States he was given something to help his have a bowel movement and also drank a bottle of magnesium citrate yesterday. c/o diarrhea since then. States he is concerned he may be dehydrated because he had some lightheadedness when he stepped up into his truck this morning. Lightheadedness has resolved. Pt also concerned that he may have diverticulitis. . Historical: - Allergies: 10:26 No Known Allergies; ph - PMHx: 10:26 Diabetes - NIDDM; Hypertension; ph - PSHx: 10:26 valve replacement; eye surgery; ph - Immunization history:: Adult Immunizations up to date, Client reports receiving the 2nd dose of the Covid vaccine, Client reports receiving the 1st dose of the Covid vaccine, Pneumococcal vaccine is up to date, Flu vaccine is up to date. - Social history:: Smoking status: Patient denies any tobacco usage or history of. ROS: 13:50 Constitutional: Negative for fever, chills, and weight loss. kb 13:50 Abdomen/GI: Positive for diarrhea, constipation, Negative for abdominal pain, nausea and vomiting. 13:50 Neuro: Positive for lightheadedness. 13:50 All other systems are negative. Exam: 13:50 Constitutional: This is a well developed, well nourished patient who is awake, alert, kb and in no acute distress. ENT: Moist Mucous membranes Cardiovascular: Regular rate and rhythm with a normal S1 and S2. No gallops, murmurs, or rubs. No pulse deficits. Respiratory: Respirations even and unlabored. No increased work of breathing, no retractions or nasal flaring. Abdomen/GI: Soft, non-tender. No distention Skin: Warm, dry with normal turgor. Normal color. MS/ Extremity: Pulses equal, no cyanosis. Neurovascular intact. Full, normal range of motion. Neuro: Awake and alert, GCS 15, oriented to person, place, time, and situation. Moves all extremities. Normal gait. Psych: Awake, alert, with orientation to person, place and time. Behavior, mood, and affect are within normal limits. Vital Signs: 10:22 BP 153 / 73; Pulse 64; Resp 18; Temp 97.9; Pulse Ox 98% on R/A; Weight 108.86 kg; ph Height 5 ft. 11 in. (180.34 cm); Pain 0/10; 10:52 BP 146 / 71 LA Supine (auto/lg); Pulse 57 MON; em1 10:54 BP 146 / 71 LA Sitting (auto/lg); Pulse 57; em1 10:56 BP 149 / 74 LA Standing (auto/lg); Pulse 63; em1 11:26 BP 155 / 65; Pulse 56; Resp 15 S; Pulse Ox 97% on R/A; ca1 12:45 BP 141 / 66; Pulse 61; Resp 16 S; Pulse Ox 98% on R/A; ca1 10:22 Body Mass Index 33.47 (108.86 kg, 180.34 cm) ph MDM: 10:15 Patient medically screened. kb 13:50 Data reviewed: vital signs, nurses notes. Data interpreted: Pulse oximetry: on room air kb is 98 %. Interpretation: normal. Counseling: I had a detailed discussion with the patient and/or guardian regarding: the historical points, exam findings, and any diagnostic results supporting the discharge/admit diagnosis, lab results, radiology results, the need for outpatient follow up, a family practitioner, a behavioral scientist, to return to the emergency department if symptoms worsen or persist or if there are any questions or concerns that arise at home. 01/16 10:21 Order name: Basic Metabolic Panel kb 01/16 10:21 Order name: CBC with Diff; Complete Time: 10:46 kb 01/16 10:21 Order name: Hepatic Function kb 01/16 10:21 Order name: Lipase; Complete Time: 10:59 kb 01/16 10:22 Order name: Basic Metabolic Panel; Complete Time: 10:59 EDMS 01/16 10:22 Order name: Liver (Hepatic) Function; Complete Time: 10:59 EDMS 01/16 10:21 Order name: IV Saline Lock; Complete Time: 10:46 kb 01/16 10:21 Order name: Labs collected and sent; Complete Time: 10:46 kb 01/16 10:21 Order name: Orthostatics; Complete Time: 11:00 kb 01/16 10:21 Order name: CT Abd/Pelvis - IV Contrast Only; Complete Time: 11:30 kb Administered Medications: 11:48 Drug: NS 0.9% 1000 ml Route: IV; Rate: 1000 ml; Site: right antecubital; ca1 Disposition: 18:30 Co-signature as Attending Physician, Demarcus Costa MD I agree with the assessment and tw4 plan of care. Disposition: 01/16/21 12:30 Discharged to Home. Impression: Diarrhea, unspecified. - Condition is Stable. - Discharge Instructions: Constipation, Adult, [id number], Diarrhea, Adult, Edmd-th-[id number]. - Medication Reconciliation Form, Thank You Letter, Antibiotic Education, Prescription Opioid Use form. - Follow up: Emergency Department; When: As needed; Reason: Worsening of condition. Follow up: Private Physician; When: 2 - 3 days; Reason: Recheck today's complaints, Continuance of care, Re-evaluation by your physician. Signatures: Dispatcher [employer] [facility] Alisa Oconnor, PILE DRIVING SUPERVISOR-C PILE DRIVING SUPERVISOR-Elisabeth Dyson RN RN Demarcus Salazar MD MD tw4 Anny Kwong RN RN ca1 Corrections: (The following items were deleted from the chart) 12:46 12:30 01/16/2021 12:30 Discharged to Home. Impression: Diarrhea, unspecified. Condition ca1 is Stable. Forms are Medication Reconciliation Form, Thank You Letter, Antibiotic Education, Prescription Opioid Use. Follow up: Emergency Department; When: As needed; Reason: Worsening of condition. Follow up: Private Physician; When: 2 - 3 days; Reason: Recheck today's complaints, Continuance of care, Re-evaluation by your physician. kb
--- NOTE | 2021-01-16 12:31 | ER ---
Nurse's Notes [facility] Name: Tuan Martins Age: 70 yrs Sex: Male : 1950 Arrival Date: 01/16/2021 Time: 10:03 Bed 5 Private MD: Diagnosis: Diarrhea, unspecified Presentation: 01/16 10:22 Chief complaint: Patient states: Recently started taking medication for constipation, ph also took magnesium citrate, has had diarrhea since yesterday, 1 episode of dizziness today, denies abdominal pain N/V. Coronavirus screen: Client denies travel out of the [place] in the last 14 days. Ebola Screen: No symptoms or risks identified at this time. Initial Sepsis Screen: Does the patient meet any 2 criteria? No. Patient's initial sepsis screen is negative. Does the patient have a suspected source of infection? No. Patient's initial sepsis screen is negative. Risk Assessment: Do you want to hurt yourself or someone else? Patient reports no desire to harm self or others. Onset of symptoms was January 16, 2021. 10:22 Method Of Arrival: Wheelchair ph 10:22 Acuity: CHRIS 3 ph Historical: - Allergies: 10:26 No Known Allergies; ph - PMHx: 10:26 Diabetes - NIDDM; Hypertension; ph - PSHx: 10:26 valve replacement; eye surgery; ph - Immunization history:: Adult Immunizations up to date, Client reports receiving the 2nd dose of the Covid vaccine, Client reports receiving the 1st dose of the Covid vaccine, Pneumococcal vaccine is up to date, Flu vaccine is up to date. - Social history:: Smoking status: Patient denies any tobacco usage or history of. Screenin:29 Abuse screen: Denies threats or abuse. Denies injuries from another. Nutritional ca1 screening: No deficits noted. Tuberculosis screening: No symptoms or risk factors identified. Fall Risk IV access (20 points). Assessment: 10:29 General: Appears in no apparent distress. comfortable, Behavior is calm, cooperative, ca1 appropriate for age. Pain: Denies pain. Neuro: Level of Consciousness is awake, alert, obeys commands, Oriented to person, place, time, situation. Cardiovascular: Heart tones S1 S2 present Capillary refill < 3 seconds Patient's skin is warm and dry. Rhythm is regular. Cardiovascular: Reports lightheadedness. Respiratory: Airway is patent Respiratory effort is even, unlabored, Respiratory pattern is regular, symmetrical, Breath sounds are clear bilaterally. GI: Abdomen is round non-distended, Bowel sounds present X 4 quads. Abd is soft and non tender X 4 quads. Reports constipation. : No signs and/or symptoms were reported regarding the genitourinary system. EENT: No signs and/or symptoms were reported regarding the EENT system. Derm: Skin is intact, is healthy with good turgor, Skin is pink, warm \T\ dry. Musculoskeletal: Circulation, motion, and sensation intact. Capillary refill < 3 seconds. 11:26 Reassessment: Patient appears in no apparent distress at this time. Patient and/or ca1 family updated on plan of care and expected duration. Pain level reassessed. Patient is alert, oriented x 3, equal unlabored respirations, skin warm/dry/pink. 12:45 Reassessment: Patient appears in no apparent distress at this time. Patient and/or ca1 family updated on plan of care and expected duration. Pain level reassessed. Patient is alert, oriented x 3, equal unlabored respirations, skin warm/dry/pink. Vital Signs: 10:22 BP 153 / 73; Pulse 64; Resp 18; Temp 97.9; Pulse Ox 98% on R/A; Weight 108.86 kg; ph Height 5 ft. 11 in. (180.34 cm); Pain 0/10; 10:52 BP 146 / 71 LA Supine (auto/lg); Pulse 57 MON; em1 10:54 BP 146 / 71 LA Sitting (auto/lg); Pulse 57; em1 10:56 BP 149 / 74 LA Standing (auto/lg); Pulse 63; em1 11:26 BP 155 / 65; Pulse 56; Resp 15 S; Pulse Ox 97% on R/A; ca1 12:45 BP 141 / 66; Pulse 61; Resp 16 S; Pulse Ox 98% on R/A; ca1 10:22 Body Mass Index 33.47 (108.86 kg, 180.34 cm) ph ED Course: 10:03 Patient arrived in ED. ds1 10:15 Alisa Oconnor FNP-C [facility]. kb 10:15 Demarcus Costa MD is Attending Physician. kb 10:22 Anny Kwong, RN is Primary Nurse. ca1 10:26 Triage completed. ph 10:26 Arm band placed on Patient placed in an exam room, on a stretcher. ph 10:29 Patient has correct armband on for positive identification. Bed in low position. Call ca1 light in reach. Side rails up X2. Pulse ox on. NIBP on. Warm blanket given. 10:29 Initial lab(s) drawn, by me, sent to lab. Inserted saline lock: 20 gauge in right ca1 antecubital area, using aseptic technique. Blood collected. 11:18 CT Abd/Pelvis - IV Contrast Only In Process Unspecified. EDMS 12:45 No provider procedures requiring assistance completed. IV discontinued, intact, ca1 bleeding controlled, No redness/swelling at site. Pressure dressing applied. Administered Medications: 11:48 Drug: NS 0.9% 1000 ml Route: IV; Rate: 1000 ml; Site: right antecubital; ca1 Outcome: 12:30 Discharge ordered by . kb 12:45 Discharged to home ambulatory. ca1 12:45 Condition: stable 12:45 Discharge instructions given to patient, Instructed on discharge instructions, follow up and referral plans. Demonstrated understanding of instructions, follow-up care. 12:46 Patient left the ED. ca1 Signatures: Dispatcher [employer] [facility] Alisa Oconnor, PASCUAL SUPERVISOR POWDERED SUGAR-Marcy Garza ds1 Rhys Cool em1 Elisabeth Pichardo, RN RN Anny Kwong, RN RN ca1
[2021-01-16 13:05] VITALS: TEMP 97.9
[2021-01-16 13:11] VITALS: BP 141/66; O2SAT 98
== END 2021-01-16 12:46 | disposition home or self-care (01) ==
LOC: ER 09:49
DX: R19.7 Diarrhea, unspecified (principal); I10 Essential (primary) hypertension; E11.9 Type 2 diabetes mellitus without complications
CPT/HCPCS: 85025; 80048; 36415; 80076; 83690; 74177; 99284; Q9967; J7030

== ENCOUNTER 2021-01-22 11:24 | Emergency (ER) | payer OTHER ==
--- OUTSIDE RECORDS SUMMARY | 2021-01-22 11:27 | XMS REPORT | Continuity of Care Document ---
:1950 Author Organization [facility] t Address [address] [place] [address] Care Team Providers Name Role Phone UNKNOWN Primary Care Physician Unavailable aPscual BRIONES, A Attending Clinician Doctor Unassigned, Name Attending Clinician Unavailable Roxi BRIONES Attending Clinician 3 Attending Clinician Unavailable [facility] Attending Clinician Unavailable MATHEW Attending Clinician Unavailable MATHEW Admitting Clinician Unavailable Problems This patient has no known problems. Allergies, Adverse Reactions, Alerts Allergy Allergy Status Severity Reaction(s) Onset Inactive Treating Comm ents Source Name Type Date Date Clinician No Known DA Active U [facility] Drug 11-16 Allergie 00:00: s 00 Social History Social Habit Start Date Stop Date Quantity Comments Source Sex Assigned At [birth year] [facility] ethodist 00:00:00 00:00:00 Medications Ordered Filled Start [...] 2020-11-22 10:05:10 18 /min Weight 2020-11-22 10:05:10 938461\S\8818.49 02 Sat by Pulse Oximetry 2020-11-22 10:05:10 94 /min Body Mass Index 2020-11-22 10:05:10 76.8 02 Sat by Pulse Oximetry 2020-11-17 00:08:15 94 /min Body Mass Index 2020-11-17 00:08:15 76.8 Height 2020-11-17 00:08:15 180.34\S\71 Pulse Rate 2020-11-17 00:08:15 58 /min Pulse Strength 2020-11-17 00:08:15 Normal /min Respiratory Rate 2020-11-17 00:08:15 18 /min Weight 2020-11-17 00:08:15 703242\S\8818.49 02 Sat by Pulse Oximetry 2020-11-17 00:08:14 94 /min Body Mass Index 2020-11-17 00:08:14 76.8 Height 2020-11-17 00:08:14 180.34\S\71 Pulse Rate 2020-11-17 00:08:14 58 /min Pulse Strength 2020-11-17 00:08:14 Normal /min Respiratory Rate 2020-11-17 00:08:14 18 /min Weight 2020-11-17 00:08:14 630125\S\8818.49 02 Sat by Pulse Oximetry 2020-11-16 12:22:40 93 /min Body Mass Index 2020-11-16 12:22:40 76.8 Height 2020-11-16 12:22:40 180.34\S\71 Pulse Rate 2020-11-16 12:22:40 58 /min Pulse Strength 2020-11-16 12:22:40 Normal /min Respiratory Rate 2020-11-16 12:22:40 19 /min Weight 2020-11-16 12:22:40 109894\S\8818.49 Body Mass Index 2020-11-16 07:00:48 76.8 Height 2020-11-16 07:00:48 180.34\S\71 Weight 2020-11-16 07:00:48 102912\S\8818.49 WEIGHT 2020-11-16 07:00:00 250 kg HEIGHT 2020-11-16 07:00:00 180.34 cm Procedures This patient has no known procedures. Plan of Care Planned Activity Planned Date Details Comments Source Future Scheduled 2021-03-17 INFLUENZA VACCINE [facility] 00:00:00 [code = INFLUENZA VACCINE] Future Scheduled 2013 65+ PNEUMOCOCCAL [facility] 00:00:00 VACCINE (1 of 1 - PPSV23) [code = 65+ PNEUMOCOCCAL VACCINE (1 of 1 - PPSV23)] Future Scheduled 1998 COLONOSCOPY SCREENING [facility] 00:00:00 [code = COLONOSCOPY SCREENING] Future Scheduled 1998 SHINGLES VACCINES (#1) [facility] 00:00:00 [code = SHINGLES VACCINES (#1)] Future Scheduled 1960 COVID-19 VACCINE (1) [facility] 00:00:00 [code = COVID-19 VACCINE (1)] Encounters Start End Encounter Admission Attending Care Care Encounter Source Date/Time Date/Time Type Type Clinicians Facility Department ID 2021-01-04 2021-01-04 Refill DARRION Garner [id number] 00:00:00 00:00:00 Nitin Ruiz PRIMARY [id number] CARE [id number] KRISTIN [id number] 2020-12-19 2020-12-19 Telephone DARRION Garner [id number] 00:00:00 00:00:00 Nitin Ruiz PRIMARY [id number] CARE [id number] PAVILLION [id number] 2020-12-18 2020-12-18 Orders Doctor SARA [id number] 00:00:00 00:00:00 Only Unassigned, CHAY [id number] [facility] [id number] 2020-12-16 2020-12-16 Refill [facility] [id number] 00:00:00 00:00:00 Nitin Ruiz PRIMARY [id number] CARE [id number] PAVILLION [id number] 2020-11-02 2020-11-02 Office [facility] [id number] 13:17:26 15:03:06 Visit Nitin Ruiz PRIMARY [id number] CARE [id number] PAVILLION [id number] 2020-02-15 2020-02-15 Office Pacheco Diane BCMikel [id number] 13:34:22 14:29:22 Visit 3, Ods AMBULATOR 350.1.13.21 3, Ods Y [id number] Field-Hrt, Visual [id number] Results Test Description Test Time Test Comments Results Result Comments Source Pro-Bnp 2017-04-09 22:10:00 Test Item Value Reference Range Interpretation Comme nts NT ProBnp (test code = PBNP) 204 pg/mL 0-124 H Lipid [id number] 22:10:00 Test Item Value Reference Range Interpretation Comments Cholesterol (test 150 mg/dL 0-200 N code = CHOL) Triglycerides (test 150 mg/dL 9-200 N code = TRIG) HDL (test code = 43 mg/dL 40-60 N HDL) Chol/HDL (test code 3.5 Ratio 0.0-5.0 N = CHOLPHDL) LDL, Calculated 77 mg/dL 0-130 N (NOTE)RISK O F HEART (test code = LDLC) DISEASEPu blished by [place] Heart AssociationAnal yte Optim al Boderline Increased RiskC HOL <200 200-239 >240TRI G <150 150-199 >200HDL Male: >60 <40HDL Female: >60 <50 LDL < 100 130-15 9 >160 LDL NEAR OPTIMAL IS 100- 129 VLDL (test code = 30 mg/dL 5-40 N VLDL) LDL/HDL (test code = 2 LDLPHDL)
[2021-01-22 12:16] LABS: Absolute Lymphocytes (CBC) 0.9 K/uL (0.7-4.9); Basophils % 0.4 % (0-1.3); MPV 8.8 fL (7.6-11.3); RBC Red Blood Cell Count 4.55 M/uL (4.33-5.43)
[2021-01-22 12:37] LABS: Albumin 3.4 g/dL (3.4-5.0); Bilirubin Direct 0.2 mg/dL (0-0.2); Bilirubin Total 0.8 mg/dL (0.2-1.0); Potassium 3.9 mmol/L (3.5-5.1); Protein, Total 6.7 g/dL (6.4-8.2)
--- NOTE | 2021-01-22 13:53 | RAD REPORT ---
EXAM DESCRIPTION: CT - Abdomen Pelvis W Contrast - 01/22/2021 1:34 pm CLINICAL HISTORY: Abdominal pain/constipation COMPARISON: January 16, 2021 TECHNIQUE: Computed axial tomography of the abdomen pelvis was obtained. 100 cc Isovue-300 was admin istered intravenously. Oral contrast was not requested which limits evaluation of bowel. All CT scans are performed using dose optimization technique as appropriate and may include automated exposure control or mA/KV adjustment according to patient size. FINDINGS: Mild fatty liver. Spleen, pancreas, adrenal and kidneys appear unremarkable. There is no evidence of diverticulitis. Small bilateral inguinal hernias Spondylolysis L5. Mild anterior subluxation L5 on S1. Umbilical hernia contains fat. The neck measure s 2.4 centimeters IMPRESSION: No acute abnormality is displayed.
--- NOTE | 2021-01-22 14:14 | EDPHYS ---
Physician Documentation [facility] Name: Tuan Martins Age: 70 yrs Sex: Male : 1950 Arrival Date: 01/22/2021 Time: : Bed 26 Private MD: Pardeep Alamo M ED Physician Kristofer Fish HPI: 01/22 11:55 This 70 yrs old Male presents to ER via Ambulatory with complaints of pm1 Constipation. 11:55 The patient presents with abdominal pain that is diffuse. Onset: The symptoms/episode pm1 began/occurred 3 day(s) ago. The symptoms do not radiate. Associated signs and symptoms: Pertinent positives: constipation. The symptoms are described as achy. Modifying factors: The symptoms are alleviated by nothing, the symptoms are aggravated by nothing. The patient has experienced similar episodes in the past, chronically, ongoing issue for at least three years. The patient has been recently seen at the [facility] Emergency Department, last week, for similar complaints labs were performed, CT scan was performed. Patient complaining of constipation for the past 3 days. Patient reports 3 small bowel movements within the past 24 hours. Historical: - Allergies: 11:39 No Known Allergies; ph - Home Meds: 11:57 amlodipine oral [Active]; Aspirin EC Oral [Active]; carvedilol Oral [Active]; Fish Oil ap3 Oral [Active]; Glipizide Oral [Active]; Hydrochlorothiazide Oral [Active]; lisinopril Oral [Active]; Metformin Oral [Active]; - PMHx: 11:57 Diabetes - NIDDM; Hypertension; ap3 - Immunization history:: Adult Immunizations up to date. - Social history:: Smoking status: Patient denies any tobacco usage or history of. ROS: 11:55 Constitutional: Negative for fever, chills, and weight loss, Eyes: Negative for injury, pm1 pain, redness, and discharge, ENT: Negative for injury, pain, and discharge, Neck: Negative for injury, pain, and swelling, Cardiovascular: Negative for chest pain, palpitations, and edema, Respiratory: Negative for shortness of breath, cough, wheezing, and pleuritic chest pain. 11:55 Back: Negative for injury and pain, MS/Extremity: Negative for injury and deformity, Skin: Negative for injury, rash, and discoloration, Neuro: Negative for headache, weakness, numbness, tingling, and seizure. 11:55 Abdomen/GI: Positive for abdominal pain, constipation, Negative for nausea, vomiting, and diarrhea. Exam: 11:55 Constitutional: This is a well developed, well nourished patient who is awake, alert, pm1 and in no acute distress. Head/Face: Normocephalic, atraumatic. 11:55 Back: No spinal tenderness. No costovertebral tenderness. Full range of motion. Skin: Warm, dry with normal turgor. Normal color with no rashes, no lesions, and no evidence of cellulitis. MS/ Extremity: Pulses equal, no cyanosis. Neurovascular intact. Full, normal range of motion. 11:55 Eyes: Periorbital structures: appear normal, Extraocular movements: no acute changes, Conjunctiva: 11:55 ENT: Mouth: Lips: normal, Oral mucosa: normal, pink and intact, moist. 11:55 Cardiovascular: Rate: normal, Rhythm: regular, Pulses: no pulse deficits are appreciated, Edema: is not appreciated. 11:55 Respiratory: Exam negative for acute changes, respiratory distress, shortness of breath. 11:55 Abdomen/GI: Inspection: obese Palpation: abdomen is soft and non-tender, in all quadrants. 11:55 Neuro: Exam negative for acute changes, Orientation: is normal, Mentation: is normal, Motor: is normal, moves all fours, Sensation: is normal, no obvious gross deficits. Vital Signs: 11:36 BP 145 / 65; Pulse 65; Resp 18; Temp 97.9; Pulse Ox 96% on R/A; Weight 108.86 kg; ph Height 5 ft. 11 in. (180.34 cm); 12:15 BP 140 / 60; Pulse 58; Resp 18; Pulse Ox 100% on R/A; ap3 12:52 BP 143 / 85; Pulse 54; Resp 16 S; Pulse Ox 100% on R/A; ca1 14:07 BP 135 / 62; Pulse 53; Pulse Ox 98% on R/A; ap3 11:36 Body Mass Index 33.47 (108.86 kg, 180.34 cm) ph MDM: 11:55 Patient medically screened. pm1 14:12 Data reviewed: vital signs. Data interpreted: Pulse oximetry: on room air is 98 %. pm1 Interpretation: normal. Counseling: I had a detailed discussion with the patient and/or guardian regarding: the historical points, exam findings, and any diagnostic results supporting the discharge/admit diagnosis, lab results, radiology results, the need for outpatient follow up, a transfer worker, to return to the emergency department if symptoms worsen or persist or if there are any questions or concerns that arise at home. 01/22 11:54 Order name: Basic Metabolic Panel; Complete Time: 12:38 pm1 01/22 11:54 Order name: CBC with Diff; Complete Time: 12:38 pm1 01/22 11:54 Order name: Hepatic Function; Complete Time: 12:38 pm1 01/22 11:54 Order name: Lipase; Complete Time: 12:38 pm1 01/22 11:54 Order name: IV Saline Lock; Complete Time: 12:08 pm1 01/22 11:54 Order name: CT Abd/Pelvis - IV Contrast Only; Complete Time: 13:57 pm1 01/22 11:54 Order name: Labs collected and sent; Complete Time: 12:08 pm1 Administered Medications: No medications were administered Disposition: 17:30 Co-signature as Attending Physician, Kristofer Fish MD. rn Disposition: 01/22/21 14:13 Discharged to Home. Impression: Unspecified abdominal pain, Constipation, unspecified. - Condition is Stable. - Discharge Instructions: Abdominal Pain, Adult, Constipation, Adult. - Medication Reconciliation Form, Thank You Letter, Antibiotic Education, Prescription Opioid Use form. - Follow up: Emergency Department; When: As needed; Reason: Worsening of condition. Follow up: Pardeep Alamo MD; When: 2 - 3 days; Reason: Recheck today's complaints, Continuance of care, Re-evaluation by your physician. - Problem is new. - Symptoms have improved. Signatures: Dispatcher [employer] EDMS Kristofer Fish MD MD rn Hall, Patricia, RN RN Hayden Askew, ARMANDO CAFE ATTENDANT pm1 Lita Cordoba RN RN ap3 Corrections: (The following items were deleted from the chart) 14:42 14:13 01/22/2021 14:13 Discharged to Home. Impression: Unspecified abdominal pain; ap3 Constipation, unspecified. Condition is Stable. Forms are Medication Reconciliation Form, Thank You Letter, Antibiotic Education, Prescription Opioid Use. Follow up: Emergency Department; When: As needed; Reason: Worsening of condition. Follow up: Pardeep Alamo; When: 2 - 3 days; Reason: Recheck today's complaints, Continuance of care, Re-evaluation by your physician. Problem is new. Symptoms have improved. pm1
--- NOTE | 2021-01-22 14:14 | ER ---
Nurse's Notes [facility] Name: Tuan Martins Age: 70 yrs Sex: Male : 1950 Arrival Date: 01/22/2021 Time: 11:27 Bed 26 Private MD: Pardeep Alamo M Diagnosis: Unspecified abdominal pain;Constipation, unspecified Presentation: 01/22 11:36 Coronavirus screen: Client denies travel out of the [place] in the last 14 days. At this ph time, the client does not indicate any symptoms associated with coronavirus-19. Ebola Screen: No symptoms or risks identified at this time. Initial Sepsis Screen: Does the patient meet any 2 criteria? No. Patient's initial sepsis screen is negative. Does the patient have a suspected source of infection? No. Patient's initial sepsis screen is negative. Risk Assessment: Do you want to hurt yourself or someone else? Patient reports no desire to harm self or others. Onset of symptoms was January 22, 2021. 11:36 Acuity: CHRIS 3 ph 11:36 Method Of Arrival: Ambulatory ph 11:37 Chief complaint: Patient states: Hx of constipation, see's Dr Alamo, states, " I went to the restroom this morning and had a little diarrhea but I still feel like there's some in there that needs to come out." Sates that he took magnesium citrate last night and milk of magnesia this morning. Seen in ED last week for similar complaint. Historical: - Allergies: 11:39 No Known Allergies; ph - Home Meds: 11:57 amlodipine oral [Active]; Aspirin EC Oral [Active]; carvedilol Oral [Active]; Fish Oil ap3 Oral [Active]; Glipizide Oral [Active]; Hydrochlorothiazide Oral [Active]; lisinopril Oral [Active]; Metformin Oral [Active]; - PMHx: 11:57 Diabetes - NIDDM; Hypertension; ap3 - Immunization history:: Adult Immunizations up to date. - Social history:: Smoking status: Patient denies any tobacco usage or history of. Screenin:54 Abuse screen: Denies threats or abuse. Nutritional screening: No deficits noted. ap3 Tuberculosis screening: No symptoms or risk factors identified. Fall Risk None identified. Assessment: 11:53 General: Appears in no apparent distress. comfortable, Behavior is calm, cooperative, ap3 appropriate for age. Pain: Complains of pain in abdomen diffusely Pain does not radiate. Quality of pain is described as crampy, Pain began 2-3 days ago. Is intermittent. Neuro: Level of Consciousness is awake, alert, obeys commands, Oriented to person, place, time, situation. Cardiovascular: Capillary refill < 3 seconds. Respiratory: Airway is patent Respiratory effort is even, unlabored, Respiratory pattern is regular, symmetrical. GI: Abdomen is round Bowel sounds present X 4 quads. Abd is soft X 4 quads Abdomen is tender to palpation in suprapubic area. GI: Reports constipation. : No signs and/or symptoms were reported regarding the genitourinary system. EENT: No signs and/or symptoms were reported regarding the EENT system. Derm: No signs and/or symptoms reported regarding the dermatologic system. Musculoskeletal: No signs and/or symptoms reported regarding the musculoskeletal system. Vital Signs: 11:36 BP 145 / 65; Pulse 65; Resp 18; Temp 97.9; Pulse Ox 96% on R/A; Weight 108.86 kg; ph Height 5 ft. 11 in. (180.34 cm); 12:15 BP 140 / 60; Pulse 58; Resp 18; Pulse Ox 100% on R/A; ap3 12:52 BP 143 / 85; Pulse 54; Resp 16 S; Pulse Ox 100% on R/A; ca1 14:07 BP 135 / 62; Pulse 53; Pulse Ox 98% on R/A; ap3 11:36 Body Mass Index 33.47 (108.86 kg, 180.34 cm) ph ED Course: 11:27 Patient arrived in ED. as 11:28 Pardeep Alamo MD is Private Physician. as 11:36 Triage completed. ph 11:36 Arm band placed on Patient placed in an exam room, on a stretcher. ph 11:41 Hayden Condon NP is PHCP. pm1 11:41 Kristofer Fish MD is Attending Physician. pm1 11:52 Lita Cordoba, TYLER is Primary Nurse. ap3 11:59 Patient has correct armband on for positive identification. Call light in reach. Side ap3 rails up X 1. Pulse ox on. NIBP on. Door closed. Noise minimized. 12:05 Initial lab(s) drawn, by me, sent to lab. Inserted saline lock: 20 gauge in left ca1 antecubital area, using aseptic technique. Blood collected. 13:34 CT Abd/Pelvis - IV Contrast Only In Process Unspecified. EDMS 13:[address] back from CT. ap3 14:13 Pardeep Alamo MD is Referral Physician. pm1 14:41 No provider procedures requiring assistance completed. IV discontinued, intact, ap3 bleeding controlled, No redness/swelling at site. Pressure dressing applied. Administered Medications: No medications were administered Outcome: 14:13 Discharge ordered by . pm1 14:41 Discharged to home ambulatory. ap3 14:41 Condition: good 14:41 Discharge instructions given to patient, Instructed on discharge instructions, follow up and referral plans. Demonstrated understanding of instructions, follow-up care. 14:42 Patient left the ED. ap3 Signatures: Dispatcher [employer] EDMS Kaity Cool Patricia, TYLER RN ph Hayden Condon, LICENSED FUNERAL DIRECTOR LICENSED FUNERAL DIRECTOR pm1 Lita Cordoba RN RN ap3 Anny Kwong RN RN ca1 Corrections: (The following items were deleted from the chart) 12:55 12:52 Pulse 54bpm; Resp 16bpm; Spontaneous; Pulse Ox 100% RA; ca1 ca1
[2021-01-22 15:08] VITALS: TEMP 97.9
[2021-01-22 15:14] VITALS: BP 135/62; O2SAT 98
== END 2021-01-22 14:42 | disposition home or self-care (01) ==
LOC: ER 11:24
DX: K59.00 Constipation, unspecified (principal); I10 Essential (primary) hypertension; E11.9 Type 2 diabetes mellitus without complications; Z79.82 Long term (current) use of aspirin
CPT/HCPCS: 85025; 80048; 36415; 80076; 83690; 74177; Q9967; 99284

== ENCOUNTER 2021-01-25 09:24 | Observation (INO) | payer OTHER ==
--- OUTSIDE RECORDS SUMMARY | 2021-01-25 09:27 | XMS REPORT | Continuity of Care Document ---
:1950 Author Organization [facility] t Address [address] [place] [address] Care Team Providers Name Role Phone UNKNOWN Primary Care Physician Unavailable Pcp-Lab Attending Clinician Unavailable Pascual BRIONES, A Attending Clinician Doctor [...] Date Clinician No Known DA Active [facility] 11-16 Allergie 00:00: s 00 Social History Social Habit Start Date Stop Date Quantity Comments Source Sex Assigned At [birth year] [facility] ethodist 00:00:00 00:00:00 Medications Ordered Filled Start [...] 2020-11-22 10:05:10 18 /min Weight 2020-11-22 10:05:10 460573\S\8818.49 02 Sat by Pulse Oximetry 2020-11-17 00:08:15 94 /min Body Mass Index 2020-11-17 00:08:15 76.8 Height 2020-11-17 00:08:15 180.34\S\71 Pulse Rate 2020-11-17 00:08:15 58 /min Pulse Strength 2020-11-17 00:08:15 Normal /min Respiratory Rate 2020-11-17 00:08:15 18 /min Weight 2020-11-17 00:08:15 332920\S\8818.49 02 Sat by Pulse Oximetry 2020-11-17 00:08:14 94 /min Body Mass Index 2020-11-17 00:08:14 76.8 Height 2020-11-17 00:08:14 180.34\S\71 Pulse Rate 2020-11-17 00:08:14 58 /min Pulse Strength 2020-11-17 00:08:14 Normal /min Respiratory Rate 2020-11-17 00:08:14 18 /min Weight 2020-11-17 00:08:14 801871\S\8818.49 02 Sat by Pulse Oximetry 2020-11-16 12:22:40 93 /min Body Mass Index 2020-11-16 12:22:40 76.8 Height 2020-11-16 12:22:40 180.34\S\71 Pulse Rate 2020-11-16 12:22:40 58 /min Pulse Strength 2020-11-16 12:22:40 Normal /min Respiratory Rate 2020-11-16 12:22:40 19 /min Weight 2020-11-16 12:22:40 930120\S\8818.49 Body Mass Index 2020-11-16 07:00:48 76.8 Height 2020-11-16 07:00:48 180.34\S\71 Weight 2020-11-16 07:00:48 524350\S\8818.49 WEIGHT 2020-11-16 07:00:00 250 kg HEIGHT 2020-11-16 07:00:00 180.34 cm Procedures This patient has no known procedures. Plan of Care Planned Activity Planned Date Details Comments Source Future Scheduled 2021-03-17 INFLUENZA VACCINE [place] [facility] 00:00:00 [code = INFLUENZA VACCINE] Future Scheduled 2013 65+ PNEUMOCOCCAL [facility] 00:00:00 VACCINE (1 of 1 - PPSV23) [code = 65+ PNEUMOCOCCAL VACCINE (1 of 1 - PPSV23)] Future Scheduled 1998 COLONOSCOPY SCREENING [facility] 00:00:00 [code = COLONOSCOPY SCREENING] Future Scheduled 1998 SHINGLES VACCINES (#1) H [facility] 00:00:00 [code = SHINGLES VACCINES (#1)] Future Scheduled 1960 COVID-19 VACCINE (1) Alyce [facility] 00:00:00 [code = COVID-19 VACCINE (1)] Encounters Start End Encounter Admission Attending Care Care Encounter Source Date/Time Date/Time Type Type Clinicians Facility Department ID 2021-01-23 2021-01-23 Offset Duplicating Machine Operator Pcp-Lab [facility] 1..840.114 [id number] 15:56:11 16:15:04 Visit PRIMARY [id number] CARE [id number] KRISTIN [id number] 2021-01-04 2021-01-04 Ryne Garner IDANDRES 1..840.114 [id number] 00:00:00 00:00:00 Nitin A PRIMARY [id number] CARE [id number] PAVILLION [id number] 2020-12-19 2020-12-19 Telephone [facility] [id number] 00:00:00 00:00:00 Nitin A PRIMARY [id number] CARE [id number] PAVILLION [id number] 2020-12-18 2020-12-18 Orders Doctor SARA [id number] [id number] 00:00:00 00:00:00 Only Unassigned, CHAY [id number] [facility] [id number] 2020-12-16 2020-12-16 Refill [facility] [id number] 00:00:00 00:00:00 Nitin A PRIMARY [id number] CARE [id number] PAVILLION [id number] 2020-11-02 2020-11-02 Office [facility] [id number] 13:17:26 15:03:06 Visit Nitin Ruiz PRIMARY [id number] CARE [id number] PAVILLION [id number] 2020-02-15 2020-02-15 Office Pacheco Diane Mikel 1.2.840.114 [id number] 13:34:22 14:29:22 Visit 3, Ods AMBULATOR 350.1.13.21 3, Ods Y 0.2.7.2.686 Field-Hrt, Visual [id number] Results Test Description Test Time Test Comments Results Result Comments Source Pro-Bnp 2017-04-09 22:10:00 Test Item Value Reference Range Interpretation Comme nts NT ProBnp (test code = PBNP) 204 pg/mL 0-124 H Lipid [id number] 22:10:00 Test Item Value Reference Range Interpretation Comments Cholesterol (test 150 mg/dL 0-200 N code = CHOL) Triglycerides (test 150 mg/dL 9-200 N code = TRIG) HDL (test code = 43 mg/dL 40-60 N HDL) Chol/HDL (test code 3.5 Ratio 0.0-5.0 N = CHOLPHDL) LDL, Calculated 77 mg/dL 0-130 N (NOTE)RISK O F HEART (test code = LDLC) DISEASEPu blished by [place] Heart AssociationAnal yte Optim al Boderline Increased RiskC HOL <200 200-239 >240TRI G <150 150-199 >200HDL Male: >60 <40HDL Female: >60 <50 LDL < 100 130-15 9 >160 LDL NEAR OPTIMAL IS 100- 129 VLDL (test code = 30 mg/dL 5-40 N VLDL) LDL/HDL (test code = 2 LDLPHDL)
[2021-01-25 10:17] LABS: Absolute Lymphocytes (CBC) 0.9 K/uL (0.7-4.9); Basophils % 0.4 % (0-1.3); Lymphocytes % 12.2 % (15.3-44.8); MPV 8.8 fL (7.6-11.3); RBC Red Blood Cell Count 4.79 M/uL (4.33-5.43)
[2021-01-25 10:26] LABS: Protime INR 0.99
[2021-01-25 10:37] LABS: Urine Blood Negative (Negative); Urine Glucose Negative (Negative); Urine Protein 3+ (Negative); Urine Specific Gravity >=1.030 (1.005-1.030)
[2021-01-25 10:49] LABS: Albumin 3.7 g/dL (3.4-5.0); Bilirubin Direct 0.3 mg/dL (0-0.2); Magnesium 2.1 mg/dL (1.8-2.4); Potassium 3.9 mmol/L (3.5-5.1); Troponin (Emerg Dept Use Only) 0.23 ng/mL (0.0-0.045)
--- NOTE | 2021-01-25 13:14 | ER ---
Nurse's Notes [facility] Name: Tuan Martins Age: 70 yrs Sex: Male : 1950 Arrival Date: 01/25/2021 Time: 09:29 Bed 4 Private MD: Diagnosis: Dizziness and giddiness;Elevated troponin Presentation: 01/25 09:39 Chief complaint: Patient states: got light headed while cooking breakfast this morning, iw feels better now but not completely resolved, denies headache , no fever/chills, denies n/v/d. Coronavirus screen: At this time, the client does not indicate any symptoms associated with coronavirus-19. Ebola Screen: Patient negative for fever greater than or equal to 101.5 degrees Fahrenheit, and additional compatible Ebola Virus Disease symptoms Patient denies exposure to infectious person. Patient denies travel to an Ebola-affected area in the 21 days before illness onset. No symptoms or risks identified at this time. Initial Sepsis Screen: Does the patient meet any 2 criteria? No. Patient's initial sepsis screen is negative. Does the patient have a suspected source of infection? No. Patient's initial sepsis screen is negative. Risk Assessment: Do you want to hurt yourself or someone else? Patient reports no desire to harm self or others. Onset of symptoms was January 25, 2021. 09:39 Method Of Arrival: Wheelchair 09:39 Acuity: CHRIS 3 iw Historical: - Allergies: 09:42 No Known Allergies; iw - Home Meds: :42 Metformin Oral [Active]; amlodipine oral [Active]; pioglitazone oral oral [Active]; iw Glipizide Oral [Active]; lisinopril 40 mg oral tab once daily [Active]; - PMHx: 09:42 Diabetes - NIDDM; Hypertension; iw - PSHx: 09:42 aortic valve replacement; iw - Immunization history:: Client reports receiving the 2nd dose of the Covid vaccine. - Social history:: Smoking status: Patient denies any tobacco usage or history of. Screenin:42 Abuse screen: Denies threats or abuse. Denies injuries from another. Nutritional ld1 screening: No deficits noted. Tuberculosis screening: No symptoms or risk factors identified. Fall Risk None identified. Assessment: 09:42 General: Appears in no apparent distress. comfortable, Behavior is calm, cooperative, ld1 appropriate for age. Pain: Denies pain. Neuro: Level of Consciousness is awake, alert, obeys commands, Oriented to person, place, time, situation, Appropriate for age. Neuro: Reports dizziness. Cardiovascular: Capillary refill < 3 seconds Patient's skin is warm and dry. Respiratory: Airway is patent Respiratory effort is even, unlabored, Respiratory pattern is regular, symmetrical. GI: Abdomen is round non-distended. : No signs and/or symptoms were reported regarding the genitourinary system. EENT: No signs and/or symptoms were reported regarding the EENT system. Derm: No signs and/or symptoms reported regarding the dermatologic system. Musculoskeletal: No signs and/or symptoms reported regarding the musculoskeletal system. 10:52 Reassessment: Patient appears in no apparent distress at this time. Patient and/or ld1 family updated on plan of care and expected duration. Pain level reassessed. Patient is alert, oriented x 3, equal unlabored respirations, skin warm/dry/pink. Patient denies pain at this time. 11:30 Reassessment: Patient appears in no apparent distress at this time. No changes from ld1 previously documented assessment. Patient and/or family updated on plan of care and expected duration. Pain level reassessed. 12:44 Reassessment: Patient appears in no apparent distress at this time. No changes from ld1 previously documented assessment. Patient and/or family updated on plan of care and expected duration. Pain level reassessed. Patient is alert, oriented x 3, equal unlabored respirations, skin warm/dry/pink. 13:45 Reassessment: Patient appears in no apparent distress at this time. No changes from ld1 previously documented assessment. Patient and/or family updated on plan of care and expected duration. Pain level reassessed. Patient is alert, oriented x 3, equal unlabored respirations, skin warm/dry/pink. 15:00 Reassessment: Patient appears in no apparent distress at this time. No changes from ld1 previously documented assessment. Patient is alert, oriented x 3, equal unlabored respirations, skin warm/dry/pink. Pr reporting he does not want to stay in room, he is bored and he wants to walk around ER department. Notified ERP of increased anxiety. 15:43 Reassessment: Tried to call report to 2nd floor. Nurse unavailable. ld1 Vital Signs: 09:39 Weight 108.86 kg; Height 5 ft. 11 in. (180.34 cm); Pain 0/10; iw 09:42 BP 125 / 74; Pulse 86; Resp 18; Temp 97.7(O); Pulse Ox 100% on R/A; Weight 108.8 kg; ld1 Height 5 ft. 10 in. (177.80 cm); Pain 0/10; 10:03 BP 132 / 59; Pulse 60; ld1 10:05 BP 132 / 66; Pulse 56; ld1 10:07 BP 139 / 73; Pulse 63; ld1 10:52 BP 126 / 67; Pulse 58; Resp 18; Pulse Ox 100% on R/A; ld1 11:45 BP 152 / 132; Pulse 60; Resp 20; Pulse Ox 100% on R/A; ld1 12:46 BP 158 / 75; Pulse 58; Resp 20; Pulse Ox 100% on R/A; ld1 13:45 BP 156 / 72; Pulse 57; Resp 18; Pulse Ox 99% on R/A; ld1 15:43 BP 152 / 76; Pulse 62; Resp 18; Pulse Ox 100% on R/A; ld1 09:42 Body Mass Index 34.42 (108.80 kg, 177.80 cm) ld1 ED Course: 09:29 Patient arrived in ED. am2 09:38 Sue Botello, RN is Primary Nurse. ld1 09:41 Triage completed. iw 09:42 Patient has correct armband on for positive identification. Bed in low position. Call ld1 light in reach. Side rails up X2. Pulse ox on. NIBP on. Door closed. Noise minimized. Warm blanket given. 09:42 Inserted saline lock: 20 gauge in right antecubital area, using aseptic technique. ld1 Blood collected. 09:43 Arm band placed on. iw 09:55 Alisa Oconnor FNP-C [facility]. kb 09:55 Naun Gar MD is Attending Physician. kb 13:14 Turner Fish MD is Hospitalizing Provider. kb 16:13 No provider procedures requiring assistance completed. Patient admitted, IV remains in ld1 place. Administered Medications: No medications were administered Outcome: 13:14 Decision to Hospitalize by Provider. kb 16:13 Admitted to Med/surg accompanied by tech, via wheelchair, room 228, with chart, Report ld1 called to TYLER Dubose. 16:13 Condition: stable 16:13 Discharge instructions given to patient, Instructed on follow up and referral plans. the need for admit, Demonstrated understanding of instructions, follow-up care, medications. 16:22 Patient left the ED. ld1 Signatures: Alisa Oconnor, GIG TENDER-C GIG TENDER-CkDelilah Staton RN RN iw Moreno, Amanda am2 Dibbern, Lauren, RN RN ld1
--- NOTE | 2021-01-25 13:14 | EDPHYS ---
Physician Documentation [facility] Name: Tuan Martins Age: 70 yrs Sex: Male : 1950 Arrival Date: 01/25/2021 Time: 09:29 Bed 4 Private MD: ED Physician Naun Gar HPI: 01/25 10:37 This 70 yrs old Male presents to ER via Wheelchair with complaints of kb lightheaded. 10:37 The patient presents with lightheadedness. Onset: The symptoms/episode began/occurred kb just prior to arrival. Context: occurred at home, occurred while the patient was standing, just prior to the episode the patient experienced no apparent symptoms. Modifying factors: The symptoms are alleviated by nothing, the symptoms are aggravated by nothing. Associated signs and symptoms: Pertinent positives: lightheadedness, Pertinent negatives: chest pain, near-syncope, shortness of breath, syncope. Severity of symptoms: At their worst the symptoms were mild moderate in the emergency department the symptoms have resolved and did so just prior to arrival. Patient's baseline: Neuro: alert and fully oriented, Motor: no deficits, Ambulation: walks without assistance, Speech: normal. The patient has not experienced similar symptoms in the past. The patient has not recently seen a physician. Pt reports he was standing in his kitchen,cooking, when he got lightheaded. States he drove himself here and didn't have any problems. Symptoms completely resolved at this time.. Historical: - Allergies: 09:42 No Known Allergies; iw - Home Meds: 09:42 Metformin Oral [Active]; amlodipine oral [Active]; pioglitazone oral oral [Active]; iw Glipizide Oral [Active]; lisinopril 40 mg oral tab once daily [Active]; - PMHx: 09:42 Diabetes - NIDDM; Hypertension; iw - PSHx: 09:42 aortic valve replacement; iw - Immunization history:: Client reports receiving the 2nd dose of the Covid vaccine. - Social history:: Smoking status: Patient denies any tobacco usage or history of. ROS: 10:34 Constitutional: Negative for fever, chills, and weight loss. kb 10:34 Neuro: Positive for lightheaded. 10:34 All other systems are negative. Exam: 10:28 Constitutional: This is a well developed, well nourished patient who is awake, alert, kb and in no acute distress. Head/Face: Normocephalic, atraumatic. Respiratory: Respirations even and unlabored. No increased work of breathing, no retractions or nasal flaring. Abdomen/GI: Soft, non-tender. No distention Skin: Warm, dry with normal turgor. Normal color. MS/ Extremity: Pulses equal, no cyanosis. Neurovascular intact. Full, normal range of motion. Neuro: Awake and alert, GCS 15, oriented to person, place, time, and situation. Moves all extremities. Normal gait. Psych: Awake, alert, with orientation to person, place and time. Behavior, mood, and affect are within normal limits. 10:28 Cardiovascular: Heart sounds: murmur, S1, S2. 10:28 ECG was reviewed by the Attending Physician. Vital Signs: 09:39 Weight 108.86 kg; Height 5 ft. 11 in. (180.34 cm); Pain 0/10; iw 09:42 BP 125 / 74; Pulse 86; Resp 18; Temp 97.7(O); Pulse Ox 100% on R/A; Weight 108.8 kg; ld1 Height 5 ft. 10 in. (177.80 cm); Pain 0/10; 10:03 BP 132 / 59; Pulse 60; ld1 10:05 BP 132 / 66; Pulse 56; ld1 10:07 BP 139 / 73; Pulse 63; ld1 10:52 BP 126 / 67; Pulse 58; Resp 18; Pulse Ox 100% on R/A; ld1 11:45 BP 152 / 132; Pulse 60; Resp 20; Pulse Ox 100% on R/A; ld1 12:46 BP 158 / 75; Pulse 58; Resp 20; Pulse Ox 100% on R/A; ld1 13:45 BP 156 / 72; Pulse 57; Resp 18; Pulse Ox 99% on R/A; ld1 15:43 BP 152 / 76; Pulse 62; Resp 18; Pulse Ox 100% on R/A; ld1 09:42 Body Mass Index 34.42 (108.80 kg, 177.80 cm) ld1 MDM: 09:55 Patient medically screened. kb 10:34 Data reviewed: vital signs, nurses notes. Data interpreted: Pulse oximetry: on room air kb is 100 %. Interpretation: normal. 10:35 ED course: Pt states he is feeling fine and would rather just go home. States "I don't kb think I need to be here." Pt agreed to wait for lab results . 10:57 Counseling: I had a detailed discussion with the patient and/or guardian regarding: the kb historical points, exam findings, and any diagnostic results supporting the discharge/admit diagnosis, lab results, radiology results, the need for further work-up and treatment in the hospital. 11:32 ED course: Pt isn't sure if he wants to stay. Pt is taking some time to think about it. kb . 13:13 Physician consultation: Turner Fish MD was contacted at 13:13, regarding admission, kb to the telemetry unit. patient's condition, and will see patient in ED, shortly. 01/25 09:55 Order name: Basic Metabolic Panel; Complete Time: 10:55 kb 01/25 09:55 Order name: CBC with Diff; Complete Time: 10:19 kb 01/25 09:55 Order name: Ckmb; Complete Time: 10:55 kb 01/25 09:55 Order name: CPK; Complete Time: 10:55 kb 01/25 09:55 Order name: Hepatic Function; Complete Time: 10:55 kb 01/25 09:55 Order name: Lipase; Complete Time: 10:55 kb 01/25 09:55 Order name: Magnesium; Complete Time: 10:55 kb 01/25 09:55 Order name: Protime (+inr); Complete Time: 10:27 kb 01/25 09:55 Order name: Ptt, Activated; Complete Time: 10:27 kb 01/25 09:55 Order name: Troponin (emerg Dept Use Only); Complete Time: 10:55 kb 01/25 10:36 Order name: Urine Dipstick-Ancillary; Complete Time: 10:43 EDMS 01/25 14:50 Order name: Troponin I EDMA 01/25 14:50 Order name: Troponin I EDMA 01/25 14:50 Order name: Troponin I EDMA 01/25 09:55 Order name: EKG; Complete Time: 09:59 kb 01/25 09:55 Order name: Cardiac monitoring; Complete Time: 10:10 kb 01/25 09:55 Order name: EKG - Nurse/Tech; Complete Time: 10:10 kb 01/25 09:55 Order name: IV Saline Lock; Complete Time: 10:10 kb 01/25 09:55 Order name: Labs collected and sent; Complete Time: 10:10 kb 01/25 09:55 Order name: NPO; Complete Time: 10:10 kb 01/25 09:55 Order name: O2 Per Protocol; Complete Time: 10:10 kb 01/25 09:55 Order name: O2 Sat Monitoring; Complete Time: 10:10 kb 01/25 09:55 Order name: Urine Dipstick-Ancillary (obtain specimen); Complete Time: 10:41 kb 01/25 09:55 Order name: Orthostatics; Complete Time: 10:10 kb 01/25 13:12 Order name: Echo w/ Doppler 01/25 14:39 Order name: CONS Physician Consult EDMA 01/25 14:50 Order name: Troponin I EDMA 01/25 14:50 Order name: T4 Free EDMA 01/25 14:50 Order name: Urinalysis EDMA 01/25 14:50 Order name: Thyroid Stimulating Hormone EDMA EC:28 Rate is 55 beats/min. Rhythm is regular. QRS [place] is Normal. AK interval is normal at kb 162 msec. QRS interval is normal at 90 msec. QT interval is normal at 450 msec. Administered Medications: No medications were administered Disposition: 01/25/21 13:14 Hospitalization ordered by Turner Fish for Observation. Preliminary diagnosis are Dizziness and giddiness, Elevated troponin. - Bed requested for Telemetry/MedSurg (observation). - Status is Observation. ld1 - Condition is Stable. - Problem is new. - Symptoms are unchanged. Addendum: 01/28/2021 11:14 Co-signature as Attending Physician, Naun Gar MD I agree with the assessment and k dr plan of care. Signatures: Dispatcher [employer] EDMA Alisa Oconnor, ARMORED SERVICE TECHNICIAN-C ARMORED SERVICE TECHNICIAN-Naun Staton MD MD [facility] Delilah Paul, TYLER RN Ana María Guadalupe Lauren, TYLER RN ld1 Corrections: (The following items were deleted from the chart) 01/25 15:29 13:14 Hospitalization Ordered by Turner Fish MD for Observation. Preliminary eb diagnosis is Dizziness and giddiness; Elevated troponin. Bed requested for Telemetry/MedSurg (observation). Status is Observation. Condition is Stable. Problem is new. Symptoms are unchanged. kb 16:22 15:29 01/25/2021 13:14 Hospitalization Ordered by Turner Fish MD for Observation. ld1 Preliminary diagnosis is Dizziness and giddiness; Elevated troponin. Bed requested for Telemetry/MedSurg (observation). Status is Observation. Condition is Stable. Problem is new. Symptoms are unchanged. eb
--- NOTE | 2021-01-25 14:51 | P.HP ---
Certification for Inpatient Patient admitted to: Observation With expected LOS: <2 Midnights Practitioner: I am a practitioner with admitting privileges, knowledge of patient current condition, hospital course, and medical plan of care. Services: Services provided to patient in accordance with Admission requirements found in Title 42 Section 412.3 of the Code of Federal Regulations Patient History Date of Service: 01/25/21 Reason for admission: NSTEMI, near-syncope History of Present Illness: 70-year-old male, PMH: HTN, NIDDM2, AoS s/p aortic valve replacement (2015) Presents to the ED after 30 minute episode of feeling light-headed. Patient was cooking when this suddenly came over him. Did have some improvements, so he decided to drive himself approximately 30 miles to this ED. Episode resolved prior to arrival to ED. He denies any recent illness, no recent change in medication, he is taking his medications as prescribed. He is unable to give me an accurate medication list. He said he was recently seen by his PCP and had normal routine bloodwork. He denies any chest pain, no fevers, no nausea/vomiting/diarrhea, no abdominal pain, no shortness of breath, no new numbness/tingling, no weakness. In the ER, EKG without ischemic changes, sinus bradycardia in 50s. Bloodwork only notable for elevated troponin of 0.23. Allergies No Known Allergies Allergy (Verified 05/24/12 14:52) Home Medications: Lisinopril [Zestril] 1 tab PO DAILY 01/25/21 Magnesium Hydroxide [Milk of Magnesia] 3 tbsp PO DAILY 01/25/21 Metformin HCl 1 tab PO BID 01/25/21 - Past Medical/Surgical History -: HTN -: DM2, non-insulin dependent -: Aortic Stenosis, s/p valve replacement (2016) -: Aortic valve replacement (2016) - Family History Family History: Reviewed- Non-Contributory - Social History Smoking Status: Never smoker Place of Residence: Home Review of Systems 10-point ROS is otherwise unremarkable Physical Examination - Physical Exam General: Alert, In no apparent distress, Oriented x3 HEENT: Atraumatic, Mucous membr. moist/pink, EOMI, Sclerae nonicteric Neck: Supple, Without JVD or thyroid abnormality Respiratory: Clear to auscultation bilaterally, Normal air movement Cardiovascular: No edema, Regular rate/rhythm (bradycardia: 50-58), Systolic murmur (loud, harsh, heard at RUSB, radiating to carotids) Gastrointestinal: Soft and benign, Non-distended, No tenderness Musculoskeletal: No erythema, No tenderness Integumentary: No rashes, No breakdown Neurological: Normal speech, Normal strength at 5/5 x4 extr, Normal affect - Studies Laboratory Data (last 24 hrs) 01/25/21 10:07: PT 11.4, INR 0.99, APTT 25.9 01/25/21 10:07: WBC 7.20, Hgb 14.5, Hct 43.0, Plt Count 242 01/25/21 10:07: Sodium 140, Potassium 3.9, BUN 15, Creatinine 0.93, Glucose 143 H, Magnesium 2.1, Total Bilirubin 1.0, AST 33, ALT 41, Alkaline Phosphatase 67, Lipase 50 L Assessment and Plan - Advance Directives Does patient have a Living Will: No Does patient have a Durable POA for Healthcare: No Physician Review Additional Text: Problem List lightheadedness/near syncope NSTEMI, suspect demand ischemia Sinus bradycardia Hypertension Aortic stenosis, s/p aortic valve replacement (2016) Patient with sinus bradycardia in the ER, down to the low 50s. Patient may have gotten very bradycardic that led to his episode, and subsequently some troponin leak/demand ischemia. possible worsening aortic stenosis / valve issue lead to symptoms Patient denies any chest pain, chest tightness, shortness of breath during episode and at this time initial trop: 0.23, Trend troponin, cardiology consulted, echocardiogram ordered to evaluate wall function and aortic valve. Will hold patients carvedilol next time therapeutic Lovenox, aspirin ordered dispo: anticipate dc home in 24 hrs pending eval Time Spent Managing Pts Care (In Minutes): 60
[2021-01-25] MEDS: INSULIN -REGULAR HUMAN 50 UNIT/0.5 ML ML SQ SCH ×2 (16:44→20:52)
[2021-01-25 18:37] LABS: Thyroid Stimulating Hormone 1.36 uIU/mL (0.360-3.740); Troponin I 0.22 ng/mL (0.0-0.045)
--- NOTE | 2021-01-25 20:14 | RAD REPORT ---
EXAM DESCRIPTION: RAD - Chest Single View - 01/25/2021 7:57 pm CLINICAL HISTORY: SOB, near-syncope Chest pain. COMPARISON: CHEST PA AND LAT 2 VIEW dated 05/24/2012 FINDINGS: Portable technique limits examination quality. The lungs are grossly clear. The heart is mildly prominent size with single lead pacer/defibrillator device present. Sternotomy wires present. IMPRESSION: No acute intrathoracic process suspected.
[2021-01-25] MEDS: GLIPIZIDE S.A. 5 MG TAB PO SCH (20:50)
[2021-01-25] MEDS: METFORMIN HCL 500 MG TAB PO SCH (20:50)
[2021-01-25] MEDS: carvediloL 12.5 MG TAB PO SCH (20:51)
[2021-01-25] MEDS: Enoxaparin 120 MG/0.8 ML SYR SQ SCH (21:00)
[2021-01-25] MEDS ORDERED: ATORVASTATIN 40 MG TAB PO SCH (21:00)
[2021-01-25] MEDS ORDERED: POTASSIUM CL SA 10 MEQ TAB PO ONE (21:00)
[2021-01-25] MEDS ORDERED: MELATONIN 5 MG TABLET PO SCH (21:00)
[2021-01-26] MEDS: LACTULOSE 20 GM/30 ML UCUP PO SCH ×2 (00:07→08:35)
[2021-01-26 05:52] LABS: Absolute Lymphocytes (CBC) 0.9 K/uL (0.7-4.9); Basophils % 0.6 % (0-1.3); Hematocrit 44.1 % (39.6-49.0); Lymphocytes % 11.2 % (15.3-44.8); MPV 8.7 fL (7.6-11.3); RBC Red Blood Cell Count 4.91 M/uL (4.33-5.43)
[2021-01-26 06:15] LABS: ALT/SGPT 43 U/L (12-78); AST/SGOT 31 U/L (15-37); Albumin 3.7 g/dL (3.4-5.0); Alkaline Phosphatase 71 U/L (45-117); BUN Blood Urea Nitrogen 14 mg/dL (7-18); Bicarbonate 27 mmol/L (21-32); Glucose Level 93 mg/dL (74-106); Phosphorus 2.8 mg/dL (2.5-4.9); Protein, Total 7.2 g/dL (6.4-8.2); Sodium Level 139 mmol/L (136-145)
[2021-01-26] MEDS ORDERED: PANTOPRAZOLE 40MG TABLET PO SCH (06:30)
[2021-01-26] MEDS: INSULIN -REGULAR HUMAN 50 UNIT/0.5 ML ML SQ SCH ×4 (07:30→16:28)
[2021-01-26] MEDS: METFORMIN HCL 500 MG TAB PO SCH ×2 (08:28→16:41)
[2021-01-26] MEDS: GLIPIZIDE S.A. 5 MG TAB PO SCH ×2 (08:28→16:42)
[2021-01-26] MEDS: carvediloL 12.5 MG TAB PO SCH (08:29)
[2021-01-26] MEDS: Enoxaparin 120 MG/0.8 ML SYR SQ SCH (08:41)
[2021-01-26] MEDS ORDERED: lisinopriL 20 MG TAB PO SCH (09:00)
[2021-01-26] MEDS ORDERED: PIOGLITAZONE 15 MG TAB PO SCH (09:00)
[2021-01-26] MEDS ORDERED: MOTEGRITY PO SCH (09:00)
[2021-01-26] MEDS ORDERED: AMLODIPINE 10 MG TAB PO SCH (09:00)
[2021-01-26] MEDS ORDERED: ASPIRIN EC 81 MG TAB PO SCH (09:00)
[2021-01-26] MEDS ORDERED: FUROSEMIDE 20 MG TABLET PO SCH (09:00)
--- NOTE | 2021-01-26 10:31 | P.PN ---
Subjective Date of Service: 01/26/21 Chief Complaint: NSTEMI, near-syncope Subjective: Other (denies any chest pain/tightness, no SOB, no dizziness/lightheadedness episodes. feels back to his normal/typical self trop slowly rising) Review of Systems 10-point ROS is otherwise unremarkable Physical Examination - Vital Signs Temperature: 97.8 F Blood Pressure: 172/77 Pulse: 62 Respirations: 17 Pulse Ox (%): 96 - Studies Laboratory Data (last 24 hrs) 01/25/21 10:07: Sodium 140, Potassium 3.9, BUN 15, Creatinine 0.93, Glucose 143 H, Magnesium 2.1, Total Bilirubin 1.0, AST 33, ALT 41, Alkaline Phosphatase 67, Lipase 50 L Assessment & Plan Physician Review Additional Text: Physical Exam: Gen: NAD, AAOx3 HEENT: Normal conjunctiva, sclerae anicteric, EOMI CV: regular rate/rhythm, +systolic murmur, no edema Pulm: CTAB, no wheeze/rales/rhonchi, nonlabored on RA Abd: soft, nontender, nondistended MSK: no joint swelling Ext: no rash Problem List lightheadedness/near syncope NSTEMI, suspect demand ischemia Sinus bradycardia Hypertension Aortic stenosis, s/p aortic valve replacement (2016) Patient with sinus bradycardia in the ER, down to the low 50s. Patient may have gotten very bradycardic that led to his episode, and subsequently some troponin leak/demand ischemia. possible worsening aortic stenosis / valve issue lead to symptoms and trop leak as well Patient denies any chest pain, chest tightness, shortness of breath initial trop: 0.23, trending up slowly echo done yesterday, awaiting results cardiology consulted, awaiting evaluation and further recommendations held carvedilol yesterday due to sinus bradycardia, pt's HR improved to 60s-70s, will restart at lower dose therapeutic lovenox ordered, pt refuses, continue aspirin dispo: anticipate dc home, pending further eval and recommendations by Cardiology Time Spent Managing Pts Care (In Minutes): 35
[2021-01-26] MEDS ORDERED: FLEET ENEMA ADULT PR PRN (11:16)
[2021-01-26 13:01] VITALS: O2SAT 97
[2021-01-26 16:25] VITALS: BMI 35.2
[2021-01-26 16:42] VITALS: BP 125/66
[2021-01-26 16:46] VITALS: TEMP 97.4
[2021-01-26] MEDS ORDERED: carvediloL 3.125 MG TAB PO SCH (17:00)
--- NOTE | 2021-01-26 17:31 | P.DS ---
Admission Date: 01/25/21 Discharge Date: 01/26/21 Disposition: ROUTINE DISCHARGE Discharge Condition: GOOD Reason for Admission: NSTEMI, near-syncope Consultations: Cardiology-Dr. Valdivia Procedures: CXR: The lungs are grossly clear. The heart is mildly prominent size with single lead pacer/defibrillator device present. Sternotomy wires present. IMPRESSION: No acute intrathoracic process suspected. Problem List lightheadedness/near syncope mild troponin elevation, NSTEMI, possible demand ischemia Sinus bradycardia Hypertension Aortic stenosis, s/p aortic valve replacement (2016) Brief History of Present Illness: 70-year-old male, PMH: HTN, NIDDM2, AoS s/p aortic valve replacement (2016) Presents to the ED after 30 minute episode of feeling light-headed. Patient was cooking when this suddenly came over him. Did have some improvements, so he decided to drive himself approximately 30 miles to this ED. Episode resolved prior to arrival to ED. He denies any recent illness, no recent change in medication, he is taking his medications as prescribed. He is unable to give me an accurate medication list. He said he was recently seen by his PCP and had normal routine bloodwork. He denies any chest pain, no fevers, no nausea/vomiting/diarrhea, no abdominal pain, no shortness of breath, no new numbness/tingling, no weakness. In the ER, EKG without ischemic changes, sinus bradycardia in 50s. Bloodwork only notable for elevated troponin of 0.23. Hospital Course: Troponins were trended and remained stable. Cardiology was consulted. Patient underwent echocardiogram, reportedly mild aortic stenosis, no wall motion abnormalities. Patient never had any chest pain/tightness, SOB, or other symptoms beyond the 30min episode of lightheadedness. It was felt this elevation in troponin may be chronic and patient was ok to discharge home since he has a f/u appointment already scheduled with his machine marker this week. Recommended cardiac stress test as soon as possible. Patient was noted to have sinus bradycardia at time of admission. Heart rate dipped into the mid 40s at times. This may have been contributing /or the causative factor of his lightheadedness episode. He was prescribed a lower dose of his carvedilol and will follow up with his machine marker. Vital Signs/Physical Exam: Temp Pulse Resp BP Pulse Ox 97.4 F 71 18 125/66 98 01/26/21 16:00 01/26/21 16:42 01/26/21 16:00 01/26/21 16:42 01/26/21 16:00 General: Alert, In no apparent distress, Oriented x3 HEENT: PERRLA, EOMI Neck: Supple, No LAD Respiratory: Clear to auscultation bilaterally, Normal air movement Cardiovascular: Regular rate/rhythm, Normal S1 S2, Systolic murmur Gastrointestinal: Soft and benign, Non-distended, No tenderness Musculoskeletal: No erythema, No tenderness Integumentary: No rashes, No significant lesion Neurological: Normal speech, Normal affect Laboratory Data at Discharge: WBC 8.20 K/uL (4.3-10.9) 01/26/21 05:33 Hgb 14.7 g/dL (13.6-17.9) 01/26/21 05:33 Hct 44.1 % (39.6-49.0) 01/26/21 05:33 Plt Count 244 K/uL (152-406) 01/26/21 05:33 PT 11.4 SECONDS (9.5-12.5) 01/25/21 10:07 INR 0.99 01/25/21 10:07 APTT 25.9 SECONDS (24.3-36.9) 01/25/21 10:07 Sodium 139 mmol/L (136-145) 01/26/21 05:33 Potassium 4.0 mmol/L (3.5-5.1) 01/26/21 05:33 BUN 14 mg/dL (7-18) 01/26/21 05:33 Creatinine 0.77 mg/dL (0.55-1.3) 01/26/21 05:33 Glucose 93 mg/dL (74-106) 01/26/21 05:33 Phosphorus 2.8 mg/dL (2.5-4.9) 01/26/21 05:33 Magnesium 2.1 mg/dL (1.8-2.4) 01/25/21 10:07 Total Bilirubin 1.0 mg/dL (0.2-1.0) 01/26/21 05:33 AST 31 U/L (15-37) 01/26/21 05:33 ALT 43 U/L (12-78) 01/26/21 05:33 Alkaline Phosphatase 71 U/L (45-117) 01/26/21 05:33 Troponin I 0.25 ng/mL (0.0-0.045) H 01/26/21 11:06 Lipase 50 U/L (73-393) L 01/25/21 10:07 Home Medications: Amlodipine [Norvasc*] 10 mg PO DAILY 01/25/21 Atorvastatin Calcium [Lipitor] 40 mg PO BEDTIME 01/25/21 Furosemide [Lasix*] 20 mg PO DAILY 01/25/21 Glipizide [Glipizide ER] 5 mg PO BID 01/25/21 Lactulose 15 ml PO DAILY 01/25/21 Lisinopril [Zestril] 40 mg PO DAILY 01/25/21 Melatonin 10 mg PO BEDTIME 01/25/21 Metformin HCl [Glucophage*] 1,000 mg PO BID 01/25/21 Omeprazole [Prilosec] 40 mg PO DAILY 01/25/21 Pioglitazone [Actos*] 45 mg PO DAILY 01/25/21 Prucalopride Succinate [Motegrity] 1 mg PO DAILY 01/25/21 carvediloL [Coreg*] 3.125 mg PO BID 30 Days #60 tab 01/26/21 New Medications: carvediloL [Coreg*] 3.125 mg PO BID 30 Days #60 tab Physician Discharge Instructions: It is unclear what lead to your lightheaded episode. When you arrived to the emergency department, you were noted to have a heart rate in the mid 40s at times, mostly in the low 50s. This slow heart rate could have been a contributing factor to your symptoms. For this reason, it is recommended that you take a lower dose of carvedilol, prescription for 3.125 mg twice a day has been sent. Do not take your prescription of 12.5mg. If you are unable to fill the new prescription, at the very least I would recommend taking half of your current regimen. Your troponin (cardiac enzyme) was 0.22 -> 0.25 -> 0.26 -> 0.25. An echocardiogram was obtained which revealed some mild aortic stenosis, and otherwise no wall motion abnormalities. Cardiology, Dr. Valdivia, was consulted. Given that your troponins remained steady and you are not having a any chest pain/tightness, shortness of breath, or any other cardiac symptoms, he felt you were okay to discharge home. Your to follow up with her machine marker as already scheduled this week. It is highly recommended that you undergo cardiac stress test. Diet: AHA Activity: Ad abdulaziz Followup: FLORENTINO GOOD [Primary Care Provider] - Time spent managing pt's care (in minutes): 45
--- NOTE | 2021-01-26 19:26 | CON ---
Date of Consultation: 01/26/2021 Reason For Consultation: Elevated troponin. History Of Present Illness: A 70-year-old male presented to the hospital due to a dizziness and near syncopal episode, has history of hypertension, diabetes, aortic valve stenosis, status post surgical aortic valve replacement in 2016. The patient had a brief episode of lightheadedness, lasted about 30 minutes, drove himself to the emergency room. Denies having any chest pain or shortness of breath or orthopnea. No cough. No fever. No other complaints. Troponin was steadily at the level of 0.2 3. Evaluated him by bedside. He has no complaints. He denies having any history of coronary artery disease or bypass surgery during the above replacement. Past Medical History: As outlined above in the HPI. Medications: Refer to reconciliation sheet for detailed list. Allergies: NO KNOWN DRUG ALLERGIES. Family History: No premature coronary artery disease. Social History: Does not smoke or drink. Does not use any drugs. Review of Systems: All systems reviewed and negative except for what is mentioned in the HPI. Physical Examination: Vital Signs: Temperature is 97.9, pulse 75, breathing at 18, blood pressure 131/66, saturating 97% o n room air. General: Pleasant elderly male, in no distress. Head and Neck: Pupils are equal, reactive to light. Intact eye movements. No JVD. No cervical lym phadenopathy. Neck: Supple. Thyroid is not enlarged. Lungs: Clear to auscultation bilaterally. No rhonchi, rales, or crackles. No accessory muscle use. Heart: Regular rate and rhythm. No extra sounds. Abdomen: Soft, nontender. Bowel sounds positive. No organomegaly. No masses or hernia. No rigidi ty or rebound. Extremities: 1+ pedal edema bilaterally. No clubbing or cyanosis. Intact pulses. Skin: No rash. Neurologic: Alert, awake, oriented x3. No acute focal deficits appreciated. Investigations: Troponin 0.23, 0.26, and then 0.25. Creatinine 0.77. Hemoglobin is 14.7. EKG with out acute specific abnormalities. Assessment And Recommendation: Elevated troponin. No chest pain. No symptoms. He had aortic valve replacement surgically in 2016 and there is no history of coronary artery disease. This is unlikely to be an acute heart attack. If indeed he has no coronary artery disease history or no coronary art ricardo disease found in 2016, coronary angiogram prior to the surgical valve replacement. Trend troponi n 1 more time and if it continues to be steady, the patient could have a chronic troponin leak and gi remy the fact that he is asymptomatic and the echocardiogram that was done showed normal ejection frac tion with normal wall motion, he can be released and follow up with his industrial gas servicer helper as an outpatient to determine the further need for cardiac workup like a stress test if deemed necessary. Thank you for the consult. /ANDREIA Voice ID: [id number] Report ID: [id number]
--- NOTE | 2021-01-28 08:13 | ECHO ---
HEIGHT: 5 ft 10 in WEIGHT: 245 lb 0 oz DATE OF STUDY: 01/25/[address]: Alisa Oconnor 2-DIMENSIONAL: YES M.MODE: YES DOPPLER: YES COLOR FLOW: YES TDS: NO PORTABLE: NO DEFINITY: NO BUBBLE STUDY: NO DIAGNOSIS: MURMUR CARDIAC HISTORY: CATHERIZATION: SURGERY: YES PROSTHETIC VALVE: YES PACEMAKER: YES MEASUREMENTS (cm) DIASTOLIC (NORMALS) SYSTOLIC (NORMALS) IVSd 1.1 (0.6-1.2) LA Diam 4.6 (1.9-4.0) LVEF 55% LVIDd 4.4 (3.5-5.7) LVIDs 3.1 (2.0-3.5) %FS 28% LVPWd 1.0 (0.6-1.2) Ao Diam 2.8 (2.0-3.7) 2 DIMENSIONAL ASSESSMENT: RIGHT ATRIUM: NORMAL LEFT ATRIUM: NORMAL RIGHT VENTRICLE: NORMAL LEFT VENTRICLE: NORMAL TRICUSPID VALVE: NORMAL MITRAL VALVE: PULMONIC VALVE: NORMAL AORTIC VALVE: NORMAL PERICARDIAL EFFUSION: NONE AORTIC ROOT: NORMAL LEFT VENTRICULAR WALL MOTION: NORMAL DOPPLER/COLOR FLOW: SEE BELOW COMMENTS: NORMAL LEFT VENTRICULAR EJECTION FRACTION 55-60%. MILD MITRAL REGURGITATION. MILD AORTIC STENOSIS. TECHNOLOGIST: Erika GALLO
== END 2021-01-26 18:34 | disposition home or self-care (01) ==
LOC: ER 09:24 → ERHOLD 14:28 → 2ND 16:17
PROVIDERS: ADMIT Hospitalist; ATTEND Hospitalist
DX: I21.4 Non-ST elevation (NSTEMI) myocardial infarction (principal); R55 Syncope and collapse; R00.1 Bradycardia, unspecified; Z95.2 Presence of prosthetic heart valve; I10 Essential (primary) hypertension; E11.9 Type 2 diabetes mellitus without complications; Z20.822 Contact with and (suspected) exposure to COVID-19; Z79.84 Long term (current) use of oral hypoglycemic drugs
CPT/HCPCS: 93005; 93306; 85025 ×2; 80048; 36415; 83735; 82550; 84100; 85610; 82947 ×5; 80076; 85730; 84443; 81003; 84484 ×6; 82553; 84439; 83690; 80053; 71045; 94760 ×3; 99285; G0378 ×3; J1650